=== PATIENT | female | born 1970 | race Caucasian/White ===

== ENCOUNTER 2022-01-17 13:31 | Inpatient (IN) | payer MEDICARE, MEDICAID ==
--- NOTE | 2022-01-17 15:25 | ED ---
General Adult HPI - General Chief complaint: Psychiatric Symptoms Stated complaint: Law Enforcement Petition Time Seen by Provider: 01/17/22 13:50 Source: patient, police, RN notes reviewed, old records reviewed Mode of arrival: ambulatory Limitations: altered mental status - History of Present Illness Initial comments: This a 51-year-old female who is brought into the emergency department because the police please a petition the patient to be evaluated. Patient was found in [employer] acting very oddly talking to people that weren't there and indicating she might want hurt some people. Patient did not mention hurting anyone to me however she was talking somewhat in the room that was not there other than myself. Patient was saying that she wanted to be with Tamir and I asked her where Tamir was and she indicated he was in a car but she didn't know where the car was. Patient was not making much sense and occasionally ask a question she looks away and starts talking and it appears she is talking to someone else was not in the room. Patient is a poor historian but she doesn't answer all the questions but she had no physical complaints when I asked her. - Related Data Home Medications Medication Instructions Recorded Confirmed Acetaminophen [Tylenol] 325 mg PO DIRECTED PRN 01/17/22 01/17/22 Albuterol Inhaler [Ventolin Hfa 2 puff INHALATION RT-Q6H PRN 01/17/22 01/17/22 Inhaler] Ammonium Lactate Cream [Lac-Hydrin 1 applic TOPICAL DAILY@0800 PRN 01/17/22 01/17/22 12% Cream] Aspirin EC [Ecotrin] 325 mg PO DIRECTED 01/17/22 01/17/22 Atorvastatin [Lipitor] 20 mg PO HS@209901/17/22 01/17/22 Cholecalciferol [Vitamin D3 (125 125 mcg PO DAILY@0800 01/17/22 01/17/22 Mcg = 5000 Iu)] Docusate [Colace] 100 mg PO DIRECTED PRN 01/17/22 01/17/22 Famotidine 20 mg PO BID@0800,209901/17/22 01/17/22 Fluticasone Propionate 44 Mcg 1 puff INHALATION RT-BID@0800,209901/17/22 01/17/22 [Flovent 44 Mcg Inhaler] Glucerna Shake 1 can PO DAILY@0800 01/17/22 01/17/22 Ibuprofen [Motrin Ib] 200 mg PO DIRECTED 01/17/22 01/17/22 Aristeo-Tin Liq 1 dose PO DIRECTED PRN 01/17/22 01/17/22 Lactulose 10 gm PO DAILY PRN 01/17/22 01/17/22 Loperamide HCl [Imodium A-D] 2 mg PO DIRECTED PRN 01/17/22 01/17/22 Loratadine 10 mg PO DAILY@0800 01/17/22 01/17/22 Magnesium Hydroxide [Milk of 1,200 mg PO DIRECTED PRN 01/17/22 01/17/22 Magnesia] Metamucil [place] 1 dose PO DIRECTED PRN 01/17/22 01/17/22 Montelukast Sodium [Singulair] 10 mg PO HS@209901/17/22 01/17/22 Mbjbydmy-Fgczmeylkd-Romv Oint 1 applic TOPICAL DIRECTED PRN 01/17/22 01/17/22 [Triple Antibiotic Ointment] Olopatadine HCl [Pataday] 1 drop BOTH EYES DAILY@0801/17/22 01/17/22 Paliperidone IM [Invega Sustenna] 234 mg IM QMONTHLY 01/17/22 01/17/22 Pseudoephedrine [Sudafed] 30 mg PO DIRECTED 01/17/22 01/17/22 Robafen Syp 100/5ml 1 dose PO DIRECTED PRN 01/17/22 01/17/22 Venlafaxine HCl [Effexor XR] 150 mg PO DAILY@0800 01/17/22 01/17/22 lisinopriL [Zestril] 20 mg PO DAILY@0800 01/17/22 01/17/22 metFORMIN HCL [Glucophage] 850 mg PO W/SUPPER@1700 01/17/22 01/17/22 risperiDONE [RisperDAL] 1 mg PO BID@0800,209901/17/22 01/17/22 traZODone HCL 200 mg PO HS@209901/17/22 01/17/22 Allergies Allergy/AdvReac Type Severity Reaction Status Date / Time codeine Allergy Unknown Verified 01/17/22 16:59 Review of Systems ROS Statement: Those systems with pertinent positive or pertinent negative responses have been documented in the HPI. ROS Other: All systems not noted in ROS Statement are negative. Past Medical History Past Medical History: Hypertension History of Any Multi-Drug Resistant Organisms: None Reported Past Surgical History: Unable to Obtain Past Psychological History: No Psychological Hx Reported Smoking Status: Current every day smoker Past Alcohol Use History: None Reported Past Drug Use History: None Reported General Exam - General Exam Comments Initial Comments: GENERAL: Patient is well-developed and well-nourished. Patient is nontoxic and well- hydrated and is in no acute distress. ENT: Neck is soft and supple. No significant lymphadenopathy is noted. Oropharynx is clear. Moist mucous membranes. Neck has full range of motion without eliciting any pain. EYES: The sclera were anicteric and conjunctiva were pink and moist. Extraocular movements were intact and pupils were equal round and reactive to light. Eyelids were unremarkable. PULMONARY: Unlabored respirations. Good breath sounds bilaterally. No audible rales rhonchi or wheezing was noted. CARDIOVASCULAR: There is a regular rate and rhythm without any murmurs gallops or rubs. ABDOMEN: Soft and nontender with normal bowel sounds. SKIN: Skin is clear with no lesions or rashes and otherwise unremarkable. NEUROLOGIC: Patient is alert and oriented difficult to assess since patient is not answering all my questions. Cranial nerves II through XII are grossly intact. Motor and sensory are also intact. Normal speech, volume and content. Symmetrical smile. MUSCULOSKELETAL: Normal extremities with adequate strength and full range of motion. LYMPHATICS: No significant lymphadenopathy is noted PSYCHIATRIC: Patient appears to be hallucinating and talking to people that aren't there. Patient also doesn't make any sense or conversation. Patient did indicate the police she did want hurt somebody though she has not repeated that to me. Limitations: altered mental status Course Vital Signs 01/17/22 01/17/22 13:51 16:00 Temperature 97.8 F Pulse Rate 104 H Respiratory 18 Rate Blood Pressure 141/101 O2 Sat by Pulse 98 Oximetry Procedures - Restraint - Face to Face Restraint Occurrence 1 Patient's Immediate Situation: Endangers self safety, Endangers others' safety, Other (see comment) (Elopement) Patient's Reaction to the Intervention: Uncooperative, Bizarre, Restless Patient's Medical & Behavioral Condition: Alert, Agitated, Bizarre behavior Face to Face Eval of Restraint Date: 01/17/22 Face to Face Eval of Restraint Time: 18:55 Medical Decision Making - Medical Decision Making EPS evaluated the patient and determined the patient needed to be admitted. I filled out a clinical certain the patient admitted. - Lab Data Lab Results 01/17/22 01/17/22 Range/Units 15:22 17:07 Urine Opiates Screen Not Detected (NotDetected) Ur Oxycodone Screen Not Detected (NotDetected) Urine Methadone Screen Not Detected (NotDetected) Ur Propoxyphene Screen Not Detected (NotDetected) Ur Barbiturates Screen Not Detected (NotDetected) U Tricyclic Antidepress Not Detected (NotDetected) Ur Phencyclidine Scrn Not Detected (NotDetected) Ur Amphetamines Screen Not Detected (NotDetected) U Methamphetamines Scrn Not Detected (NotDetected) U Benzodiazepines Scrn Not Detected (NotDetected) Urine Cocaine Screen Not Detected (NotDetected) U Marijuana (THC) Screen Not Detected (NotDetected) Coronavirus (PCR) Not Detected (Not Detectd) Disposition Clinical Impression: Acute psychosis Disposition: ADMITTED IP TO THIS HOSP Referrals: None,Stated [REFERRING] - 1-2 days Time of Disposition: 17:51
[2022-01-17 16:12] LABS: Amphetamine Screen,Urine Not Detected (NotDetected); Barbiturate Screen,Urine Not Detected (NotDetected); Benzodiazepines Screen,Urine Not Detected (NotDetected); Cocaine Screen,Urine Not Detected (NotDetected); Methadone Screen, Urine Not Detected (NotDetected); Opiate Screen,Urine Not Detected (NotDetected); Oxycodone Screen, Urine Not Detected (NotDetected); Phencyclidine Screen,Urine Not Detected (NotDetected); Tricyclic Antidepressant,Urine Not Detected (NotDetected); Urn Cannabinoid Scrn Not Detected (NotDetected)
[2022-01-17] MEDS ORDERED: ALBUTEROL INHALER 60 PUFF/8 GM INHALER (MHU) INHALATION PRN (20:07)
[2022-01-17] MEDS ORDERED: MAG HYDROX/AL HYDROX/SIMETH 30 ML CUP PO PRN (20:12)
[2022-01-17] MEDS ORDERED: ACETAMINOPHEN TAB 325 MG TAB PO PRN (20:12)
[2022-01-17] MEDS: LORazepam 2 MG/ML INJ IM PRN (20:59)
[2022-01-17] MEDS ORDERED: PALIPERIDONE IM 234 MG/1.5 ML SYG IM SCH (21:00)
[2022-01-17] MEDS: MONTELUKAST 10 MG TAB PO SCH (21:41)
[2022-01-17] MEDS: FAMOTIDINE 20 MG TAB PO SCH (21:41)
[2022-01-17] MEDS: ATORVASTATIN 20 MG TAB PO SCH (21:41)
[2022-01-17] MEDS: FLUTICASONE 44 MCG INHALATION SCH (21:41)
[2022-01-17] MEDS: traZODone HCL 100 MG TAB PO SCH (21:42)
[2022-01-17] MEDS: risperiDONE 1 MG TAB PO SCH (21:42)
[2022-01-18 07:18] LABS: Basophils # (A) 0.1 k/uL (0-0.2); Basophils % (A) 1 %; Eosinophils # (A) 0.1 k/uL (0-0.7); Eosinophils % (A) 2 %; HCT 44.2 % (34.0-46.0); HGB 14.7 gm/dL (11.4-16.0); Lymphocytes # (A) 2.6 k/uL (1.0-4.8); Lymphocytes % (A) 31 %; MCH 28.1 pg (25.0-35.0); MCHC 33.2 g/dL (31.0-37.0); MCV 84.6 fL (80.0-100.0); Mean Platelet Volume 8.9; Monocytes # (A) 0.5 k/uL (0-1.0); Monocytes % (A) 6 %; Neutrophils # (A) 4.9 k/uL (1.3-7.7); Neutrophils % (A) 58 %; Platelet Count 207 k/uL (150-450); RBC 5.23 m/uL (3.80-5.40); RDW 14.2 % (11.5-15.5); WBC 8.3 k/uL (3.8-10.6)
[2022-01-18 07:36] LABS: ALT 42 U/L (4-34); AST 44 U/L (14-36); African American GFR (CKD) >90 (>60 ml/min/1.73 sqM); Albumin 4.3 g/dL (3.5-5.0); Alkaline Phosphatase 72 U/L (38-126); Anion Gap 5 mmol/L; Blood Urea Nitrogen 7 mg/dL (7-17); Calcium 9.4 mg/dL (8.4-10.2); Carbon Dioxide 29 mmol/L (22-30); Chloride 104 mmol/L (98-107); Glucose 98 mg/dL (74-99); Non-African American GFR(CKD) >90 (>60 ml/min/1.73 sqM); Sodium 138 mmol/L (137-145); Total Bilirubin 0.6 mg/dL (0.2-1.3); Total Protein 6.7 g/dL (6.3-8.2)
[2022-01-18] MEDS: lisinopriL 10 MG TAB PO SCH (08:32)
[2022-01-18] MEDS: VENLAFAXINE HCL ER 150 MG CAP PO SCH (08:32)
[2022-01-18] MEDS: LORATADINE 10 MG TAB PO SCH (08:32)
[2022-01-18] MEDS: CHOLECALCIFEROL 125 MCG (5000 IU) TABLET PO SCH (08:32)
[2022-01-18] MEDS: FAMOTIDINE 20 MG TAB PO SCH ×2 (08:32→20:15)
[2022-01-18] MEDS: risperiDONE 1 MG TAB PO SCH ×2 (08:33→20:16)
[2022-01-18] MEDS: NICOTINE 21MG/24HR PATCH TRANSDERM SCH (08:36)
[2022-01-18] MEDS: FLUTICASONE 44 MCG INHALATION SCH ×2 (08:36→20:16)
[2022-01-18 11:06] LABS: Chol/HDL Ratio 3.13 Ratio
--- NOTE | 2022-01-18 13:42 | P.HP ---
Psychiatric H&P - . H&P Date: 01/18/22 History & Physical: Allergies Allergy/AdvReac Type Severity Reaction Status Date / Time codeine Allergy Unknown Verified 01/17/22 21:43 Vital Signs Temp 97.6 F 01/17/22 21:27 Pulse 101 H 01/18/22 04:04 Resp 20 01/17/22 21:27 BP 127/59 01/18/22 04:04 Pulse Ox 98 01/17/22 13:51 FiO2 Intake & Output 01/17/22 01/18/22 01/18/22 18:59 06:59 18:59 Weight 108.862 kg 88.5 kg Laboratory Last Values WBC 8.3 k/uL (3.8-10.6) 01/18/22 06:51 RBC 5.23 m/uL (3.80-5.40) 01/18/22 06:51 Hgb 14.7 gm/dL (11.4-16.0) 01/18/22 06:51 Hct 44.2 % (34.0-46.0) 01/18/22 06:51 MCV 84.6 fL (80.0-100.0) 01/18/22 06:51 MCH 28.1 pg (25.0-35.0) 01/18/22 06:51 MCHC 33.2 g/dL (31.0-37.0) 01/18/22 06:51 RDW 14.2 % (11.5-15.5) 01/18/22 06:51 Plt Count 207 k/uL (150-450) 01/18/22 06:51 MPV 8.9 01/18/22 06:51 Neutrophils % 58 % 01/18/22 06:51 Lymphocytes % 31 % 01/18/22 06:51 Monocytes % 6 % 01/18/22 06:51 Eosinophils % 2 % 01/18/22 06:51 Basophils % 1 % 01/18/22 06:51 Neutrophils # 4.9 k/uL (1.3-7.7) 01/18/22 06:51 Lymphocytes # 2.6 k/uL (1.0-4.8) 01/18/22 06:51 Monocytes # 0.5 k/uL (0-1.0) 01/18/22 06:51 Eosinophils # 0.1 k/uL (0-0.7) 01/18/22 06:51 Basophils # 0.1 k/uL (0-0.2) 01/18/22 06:51 Sodium 138 mmol/L (137-145) 01/18/22 06:51 Potassium 4.0 mmol/L (3.5-5.1) 01/18/22 06:51 Chloride 104 mmol/L (98-107) 01/18/22 06:51 Carbon Dioxide 29 mmol/L (22-30) 01/18/22 06:51 Anion Gap 5 mmol/L 01/18/22 06:51 BUN 7 mg/dL (7-17) 01/18/22 06:51 Creatinine 0.63 mg/dL (0.52-1.04) 01/18/22 06:51 Est GFR (CKD-EPI)AfAm >90 (>60 ml/min/1.73 sqM) 01/18/22 06:51 Est GFR (CKD-EPI)NonAf >90 (>60 ml/min/1.73 sqM) 01/18/22 06:51 Glucose 98 mg/dL (74-99) 01/18/22 06:[address] Glu mg/dL 123 01/18/22 06:51 Hemoglobin A1c 5.9 % (0.0-6.0) 01/18/22 06:51 Calcium 9.4 mg/dL (8.4-10.2) 01/18/22 06:51 Total Bilirubin 0.6 mg/dL (0.2-1.3) 01/18/22 06:51 AST 44 U/L (14-36) H 01/18/22 06:51 ALT 42 U/L (4-34) H 01/18/22 06:51 Alkaline Phosphatase 72 U/L (38-126) 01/18/22 06:51 Total Protein 6.7 g/dL (6.3-8.2) 01/18/22 06:51 Albumin 4.3 g/dL (3.5-5.0) 01/18/22 06:51 Triglycerides 162.00 mg/dL (0.00-149.00) H 01/18/22 06:51 Cholesterol 121.00 mg/dL (0.00-200.00) 01/18/22 06:51 LDL Cholesterol, Calc 50.0 mg/dL (0.0-131.0) 01/18/22 06:51 VLDL Cholesterol, Calc 32.40 mg/dL (5.00-40.00) 01/18/22 06:51 HDL Cholesterol 38.60 mg/dL (40.00-60.00) L 01/18/22 06:51 Cholesterol/HDL Ratio 3.13 Ratio 01/18/22 06:51 TSH 1.820 mIU/L (0.465-4.680) 01/18/22 06:51 Urine Opiates Screen Not Detected (NotDetected) 01/17/22 15:22 Ur Oxycodone Screen Not Detected (NotDetected) 01/17/22 15:22 Urine Methadone Screen Not Detected (NotDetected) 01/17/22 15:22 Ur Propoxyphene Screen Not Detected (NotDetected) 01/17/22 15:22 Ur Barbiturates Screen Not Detected (NotDetected) 01/17/22 15:22 U Tricyclic Antidepress Not Detected (NotDetected) 01/17/22 15:22 Ur Phencyclidine Scrn Not Detected (NotDetected) 01/17/22 15:22 Ur Amphetamines Screen Not Detected (NotDetected) 01/17/22 15:22 U Methamphetamines Scrn Not Detected (NotDetected) 01/17/22 15:22 U Benzodiazepines Scrn Not Detected (NotDetected) 01/17/22 15:22 Urine Cocaine Screen Not Detected (NotDetected) 01/17/22 15:22 U Marijuana (THC) Screen Not Detected (NotDetected) 01/17/22 15:22 Coronavirus (PCR) Not Detected (Not Detectd) 01/17/22 17:07 01/18/22 13:41 IDENTIFYING DATA: Patient is a 51-year-old female with significant his tory of schizophrenia presented to the hospital for acute psychosis. HPI: Patient presented to the hospital on 01/17/2022, brought into the hospital by police after eloping from her [facility] intermediate. Reportedly, the patient has been nonadherent with her medications including her regularly scheduled dose of Invega Sustenna. The patient last received the injectable Invega Sustenna on 12/13/2021 and was scheduled for her next injection of 234 mg IM on 01/10/2022. The patient has been petitioned and certified and subsequently admitted to the psychiatric unit. The patient was last seen for a medication review on 12/16/2021. Upon evaluation on the psychiatric unit, the patient is grossly delusional, disorganized, and responding to internal stimuli. She endorses auditory and visual hallucinations. She expresses bizarre delusions of surveillance and paranoia. She reports that "they are after me and my baby." She also reports concern that some government entity is trying to put thoughts into her head. She is unable to provide any clear psychiatric history otherwise at this time. She is unable to recall what medication she has been taking and when she left medications. The patient is currently denying any active suicidal ideation however does have significant decided attempts by cutting. She is currently denying any homicidal ideation, intention, and/or plan. The patient firmly believes that she does not have schizophrenia. She reports that she does not want to take any medications. PAST PSYCHIATRIC HISTORY: Patient has previous diagnoses of schizophrenia. The patient's home medication regimen includes Invega Sustenna 234 mg IM, risperidone 1 mg twice a day, trazodone 200 mg at bedtime, Effexor. Patient has had numerous psychiatric hospitalizations. The patient is currently open with [facility]. The patient has had a prior attempt at suicide by cutting. PMH: Past Medical History: Hypertension History of Any Multi-Drug Resistant Organisms: None Reported Past Surgical History: Unable to Obtain Past Psychological History: No Psychological Hx Reported Smoking Status: Current every day smoker Past Alcohol Use History: None Reported Past Drug Use History: None Reported ALLERGIES: Codeine CHEMICAL DEPENDENCY HISTORY: The patient does report tobacco use. She reports that she smokes about a pack per day. She does report occasional alcohol use. She does have significant history of marijuana use. She denies any illicit drug use. FAMILY PSYCHIATRIC/SUBSTANCE USE HISTORY: Unable to assess. SOCIAL HISTORY: Patient currently resides in a intermediate. MENTAL STATUS EXAM: General Appearance: Patient appears to be stated age is alert, directable, and attempts to cooperate. Patient appears to have poor hygiene and grooming. Behavior: Patient is seated without any agitated behavior. Elevated psychomotor activity. Speech: Patient's speech is fluent and nonpressured. Monotone and nonspontaneous. Mood/Affect: Patient reports their mood is "I don't know." Affect is flat. Suicidality/Homicidality: Patient denies having any homicidal ideation intent or plan. Denies any suicidal ideations intent or plan Perceptions: Patient endorses both auditory and visual hallucinations. Though content/process: Patient endorses bizarre delusional thought content, appears to be grossly disorganized, and appears to be responding to internal stimuli. Memory and concentration: AOX3, grossly intact for the purposes of this session. Concentration appears to be poor. Judgment and insight: poor STRENGTHS/WEAKNESSES: Unable to identify patient strengths at this time. W eakness that the patient has severe mental illness and is nonadherent with treatment. INTELLECT: Below average to average IMPRESSIONS: Schizoaffective disorder, bipolar type Posttraumatic stress disorder Cannabis use disorder Tobacco use disorder PLAN: -Patient is admitted under involuntary status to MHU for stabilization of psychiatric symptoms and safety. A second certification was completed and along with petition will be filed for court. -Medications : We will increase the patient's Risperdal to 2 mg by mouth twice a day for management of acute psychosis We will continue Effexor 150 mg by mouth daily for depression/anxiety Continue trazodone 200 mg by mouth at bedtime for insomnia We will restart Invega Sustenna pending patient's response with Risperdal. -Ativan and Haldol PRN for agitation/aggression -Patient was counselled on substance abuse and desired to cut back on use -Patient was informed of the risks, benefits and side effects of the medication and patient verbally consented to taking the medications. Patient signed med consent form and was placed in chart. -Internal Medicine consult to perform medical evaluation and physical. -NRT - nicotine patch - on board for discharge planning. Encourage patient to participate in groups to work on coping skills. 01/18/22 13:41
[2022-01-18] MEDS: metFORMIN 850 MG TAB PO SCH (17:17)
[2022-01-18] MEDS: traZODone HCL 100 MG TAB PO SCH (20:15)
[2022-01-18] MEDS: ATORVASTATIN 20 MG TAB PO SCH (20:15)
[2022-01-18] MEDS: MONTELUKAST 10 MG TAB PO SCH (20:16)
--- NOTE | 2022-01-19 02:36 | P.CONS ---
History of Present Illness - Reason for Consult Consult date: 01/19/22 - History of Present Illness The patient is a 52-year-old female with a PMH of type II DM, hypertension, hyperlipidemia, COPD, who was brought to the emergency room under police custody after she was found to be acting strangely at a [employer]. The patient was reportedly acting bizarre with bystanders worried that she may hurt someone. The patient was admitted to the mental health unit where she was seen and evaluated with a mental health unit RN at the bedside. The patient denied any physical complaints at the time of interview. She denied including chest discomfort, shortness of breath, fever, chills, cough, nausea, vomiting, abdominal, diarrhea. She does report a history of cervical cancer for which she underwent treatment as an outpatient. She wishes to follow up with her outpatient ACADEMIC SERVICES COORDINATOR. She reports smoking half pack of cigarettes daily and using recreational marijuana. Laboratory evaluation was reviewed. Review of systems: Pertinent positives and negatives as discussed in HPI, a complete review of systems was performed and all other systems are negative. Physical examination: General: non toxic, no distress, appears at stated age, obese Derm: no unusual rashes/lesions no unusual ecchymoses, warm, dry Head: atraumatic, normocephalic, symmetric Eyes: EOMI, no lid lag, anicteric sclera, pupils equal round reactive to light ENT: Nose and ears atraumatic, no thrush, no pharyngeal erythema Neck: No thyromegaly, no cervical lymphadenopathy, trachea midline, supple Mouth: no lip lesion, mucus membranes moist Cardiovascular: S1S2 reg, no murmur, positive posterior tibial pulse bilateral, no edema, capillary refill less than 2 seconds Lungs: CTA bilateral, no rhonchi, no rales , no accessory muscle use Abdominal: soft, nontender to palpation, no guarding, no appreciable organomegaly, normal bowel sounds Ext: no gross muscle atrophy, muscle strength 5 out of 5 in all 4 extremities grossly, no contractures, Neuro: CN II-XI grossly intact, light touch intact all 4 extremities, finger to nose within normal limits, Psych: Alert, oriented, bizarre affect Assessment/plan Tobacco and marijuana abuse -Advised on importance of cessation Chronic conditions: Type II DM, hypertension, hyperlipidemia, COPD -Continue with home meds Psychosis -As per psychiatry Thank you for allowing us to participate in the care of this patient. We will follow peripherally. Do not hesitate to contact us with questions. Someone can be reached from the [facility] hospitalist group at all hours of the day at [phone]. Past Medical History Past Medical History: Hypertension History of Any Multi-Drug Resistant Organisms: None Reported Past Surgical History: Unable to Obtain Past Anesthesia/Blood Transfusion Reactions: No Reported Reaction Smoking Status: Current every day smoker - Past Family History Mother Family Medical History: Hyperlipidemia Medications and Allergies Home Medications Medication Instructions Recorded Confirmed Type Acetaminophen [Tylenol] 325 mg PO DIRECTED PRN 01/17/22 01/17/22 History Albuterol Inhaler [Ventolin Hfa 2 puff INHALATION RT-Q6H PRN 01/17/22 01/17/22 History Inhaler] Ammonium Lactate Cream [Lac-Hydrin 1 applic TOPICAL DAILY@0800 PRN 01/17/22 01/17/22 History 12% Cream] Aspirin EC [Ecotrin] 325 mg PO DIRECTED 01/17/22 01/17/22 History Atorvastatin [Lipitor] 20 mg PO HS@209901/17/22 01/17/22 History Cholecalciferol [Vitamin D3 (125 125 mcg PO DAILY@0800 01/17/22 01/17/22 History Mcg = 5000 Iu)] Docusate [Colace] 100 mg PO DIRECTED PRN 01/17/22 01/17/22 History Famotidine 20 mg PO BID@0800,209901/17/22 01/17/22 History Fluticasone Propionate 44 Mcg 1 puff INHALATION RT-BID@0800,209901/17/22 01/17/22 History [Flovent 44 Mcg Inhaler] Glucerna Shake 1 can PO DAILY@0800 01/17/22 01/17/22 History Ibuprofen [Motrin Ib] 200 mg PO DIRECTED 01/17/22 01/17/22 History Aristeo-Tin Liq 1 dose PO DIRECTED PRN 01/17/22 01/17/22 History Lactulose 10 gm PO DAILY PRN 01/17/22 01/17/22 History Loperamide HCl [Imodium A-D] 2 mg PO DIRECTED PRN 01/17/22 01/17/22 History Loratadine 10 mg PO DAILY@0800 01/17/22 01/17/22 History Magnesium Hydroxide [Milk of 1,200 mg PO DIRECTED PRN 01/17/22 01/17/22 History Magnesia] Metamucil [place] 1 dose PO DIRECTED PRN 01/17/22 01/17/22 History Montelukast Sodium [Singulair] 10 mg PO HS@2100 01/17/22 01/17/22 History Dkegozfm-Gcobojalso-Sibf Oint 1 applic TOPICAL DIRECTED PRN 01/17/22 01/17/22 History [Triple Antibiotic Ointment] Olopatadine HCl [Pataday] 1 drop BOTH EYES DAILY@0800 01/17/22 01/17/22 History Paliperidone IM [Invega Sustenna] 234 mg IM QMONTHLY 01/17/22 01/17/22 History Pseudoephedrine [Sudafed] 30 mg PO DIRECTED 01/17/22 01/17/22 History Robafen Syp 100/5ml 1 dose PO DIRECTED PRN 01/17/22 01/17/22 History Venlafaxine HCl [Effexor XR] 150 mg PO DAILY@0800 01/17/22 01/17/22 History lisinopriL [Zestril] 20 mg PO DAILY@0800 01/17/22 01/17/22 History metFORMIN HCL [Glucophage] 850 mg PO W/SUPPER@1700 01/17/22 01/17/22 History risperiDONE [RisperDAL] 1 mg PO BID@0800,2100 01/17/22 01/17/22 History traZODone HCL 200 mg PO HS@209901/17/22 01/17/22 History Allergies Allergy/AdvReac Type Severity Reaction Status Date / Time codeine Allergy Unknown Verified 01/17/22 21:43 Physical Exam Vitals: Vital Signs Pulse BP 01/18/22 04:04 101 H 127/59 Results CBC & Chem 7: 01/18/22 06:51 01/18/22 06:51 Labs: Abnormal Lab Results - Last 24 Hours (Table) 01/18/22 Range/Units 06:51 AST 44 H (14-36) U/L ALT 42 H (4-34) U/L Triglycerides 162.00 H (0.00-149.00) mg/dL HDL Cholesterol 38.60 L (40.00-60.00) mg/dL
[2022-01-19] MEDS: CHOLECALCIFEROL 125 MCG (5000 IU) TABLET PO SCH (08:00)
[2022-01-19] MEDS: LORATADINE 10 MG TAB PO SCH (08:00)
[2022-01-19] MEDS: VENLAFAXINE HCL ER 150 MG CAP PO SCH (08:01)
[2022-01-19] MEDS: FLUTICASONE 44 MCG INHALATION SCH ×2 (08:01→20:37)
[2022-01-19] MEDS: FAMOTIDINE 20 MG TAB PO SCH ×2 (08:03→20:38)
[2022-01-19] MEDS: lisinopriL 10 MG TAB PO SCH (08:03)
[2022-01-19] MEDS: risperiDONE 1 MG TAB PO SCH ×2 (08:03→20:38)
[2022-01-19] MEDS: NICOTINE 21MG/24HR PATCH TRANSDERM SCH (08:04)
--- NOTE | 2022-01-19 13:40 | P.PN ---
Progress Note - Text Progress Note Date: 01/19/22 Interval History: Patient was seen wandering the hallways and was directable and agreeable to speak with creative services writer in her room. Currently, the patient is not reporting any suicidal or homicidal ideation, intention, and/or plan. She continues to be delusional and paranoid. She has been refusing any medications. She reports no issues otherwise with her sleep or her appetite. The patient appears to respond to internal stimuli. Admits to auditory hallucinations are denies any visual hallucinations. Mental Status Exam: General Appearance: Patient appears to be stated age is alert, directable, and intermittently cooperative. Behavior: Patient is calmly seated without any agitated behavior. Intermittent eye contact Speech: Patient's speech is fluent and nonpressured. Mood/Affect: Mood is "okay." Affect is flat. Suicidality/Homicidality: Patient denies having any suicidal or homicidal ideation intent or plan. Perceptions: Patient denies any visual hallucinations but patient endorses auditory hallucinations Though content/process: Patient display significant paranoid and bizarre delusional thought content. She appears to respond to internal stimuli. Memory and concentration: AOX3, grossly intact for the purposes of this session Judgment and insight: Very poor Vital Signs Temp 97.4 F L 01/19/22 05:36 Pulse 80 01/19/22 05:36 Resp 18 01/19/22 05:36 BP 99/55 01/19/22 05:36 Pulse Ox 98 01/17/22 13:51 FiO2 Assessment Schizoaffective disorder, bipolar type Posttraumatic stress disorder Cannabis use disorder Tobacco use disorder Plan: -Patient continues to meet criteria for inpatient psychiatric admission for symptom stabilization and safety. The patient has been petitioned and certified. -Medications: We will continue Risperdal 2 mg by mouth twice a day. Patient is currently refusing this medication Discontinue Effexor as Effexor may have contributed to her aquatic symptoms as per discussion with [facility] Continue trazodone 200 mg by mouth at bedtime for insomnia -When necessary Ativan and Haldol for agitation/aggression. -NRT - nicotine patch - on board for discharge planning. Encouraged the patient to participate in milieu.
[2022-01-19] MEDS: metFORMIN 850 MG TAB PO SCH (17:53)
[2022-01-19] MEDS: MONTELUKAST 10 MG TAB PO SCH (20:38)
[2022-01-19] MEDS: ATORVASTATIN 20 MG TAB PO SCH (20:38)
[2022-01-19] MEDS: traZODone HCL 100 MG TAB PO SCH (20:39)
[2022-01-20] MEDS: lisinopriL 10 MG TAB PO SCH (08:27)
[2022-01-20] MEDS: FAMOTIDINE 20 MG TAB PO SCH ×2 (08:27→20:23)
[2022-01-20] MEDS: FLUTICASONE 44 MCG INHALATION SCH ×2 (08:27→20:24)
[2022-01-20] MEDS: CHOLECALCIFEROL 125 MCG (5000 IU) TABLET PO SCH (08:27)
[2022-01-20] MEDS: LORATADINE 10 MG TAB PO SCH (08:28)
[2022-01-20] MEDS: NICOTINE 21MG/24HR PATCH TRANSDERM SCH (08:28)
[2022-01-20] MEDS: risperiDONE 1 MG TAB PO SCH ×3 (08:28→20:45)
[2022-01-20 09:10] LABS: Amorphous Sediment,Urine Rare /hpf; Appearance,Urine Cloudy (Clear); Bacteria,Urine Moderate /hpf; Bilirubin,Urine 1+ (Negative); Blood,Urine Moderate (Negative); Color,Urine Yellow; Glucose,Urine (UA) Trace (Negative); Ketones,Urine Negative (Negative); Leukocyte Esterase,Urine Large (Negative); Mucus,Urine Many /hpf; Nitrite,Urine Negative (Negative); PH, Urine 5.5 (5.0-8.0); Protein,Urine 1+ (Negative); RBC,Urine 16 /hpf (0-5); Specific Gravity,Urine 1.025 (1.001-1.035); Squamous Epithelial Cell,Urine 32 /hpf (0-4); WBC,Urine 15 /hpf (0-5)
--- NOTE | 2022-01-20 11:49 | P.PN ---
Progress Note - Text Progress Note Date: 01/20/22 Interval History: Patient was seen wandering the hallways and was directable and agreeable to speak with senior writer in her room. The patient refused to be intermittently adherent with her medications. She reports that she does not need any medications to this provider. She is currently denying any overt auditory or visual hallucinations. She denies any suicidal or homicidal ideation, intention, and/or plan. The patient expresses that she does not believe that she has any psychiatric illness. She does appear to respond to internal stimuli while speaking with this provider and stares blankly before answering any questions. Mental Status Exam: General Appearance: Patient appears to be stated age is alert, directable, and intermittently cooperative. Behavior: Patient is calmly seated without any agitated behavior. Blank stares. Speech: Patient's speech is fluent and nonpressured. Mood/Affect: Mood is "okay." Affect is flat. Suicidality/Homicidality: Patient denies having any suicidal or homicidal ideation intent or plan. Perceptions: Patient denies any visual hallucinations but patient endorses auditory hallucinations Though content/process: Patient display significant paranoid and bizarre delusional thought content. She appears to respond to internal stimuli. Memory and concentration: AOX3, grossly intact for the purposes of this session Judgment and insight: Very poor Vital Signs Temp 97.8 F 01/20/22 06:43 Pulse 93 01/20/22 08:30 Resp 16 01/20/22 06:43 BP 110/65 01/20/22 08:30 Pulse Ox 98 01/20/22 06:43 FiO2 Laboratory Results - Last 24 Hours 01/20/22 08:00 Urine Color Yellow Urine Appearance Cloudy H Urine pH 5.5 Ur Specific [place] 1.025 Urine Protein 1+ H Urine Glucose (UA) Trace H Urine Ketones Negative Urine Blood Moderate H Urine Nitrite Negative Urine Bilirubin 1+ H Urine Urobilinogen 3.0 Ur Leukocyte Esterase Large H Urine RBC 16 H Urine WBC 15 H Ur Squamous Epith Cells 32 H Amorphous Sediment Rare H Urine Bacteria Moderate H Urine Mucus Many H Assessment Schizoaffective disorder, bipolar type Posttraumatic stress disorder Cannabis use disorder Tobacco use disorder Plan: -Patient continues to meet criteria for inpatient psychiatric admission for symptom stabilization and safety. The patient has been petitioned and certified. Court scheduled for 02/02/2022. -Medications: We will continue Risperdal 2 mg by mouth twice a day. Patient is currently refusing this medication Discontinue Effexor as Effexor may have contributed to her aquatic symptoms as per discussion with [facility] Continue trazodone 200 mg by mouth at bedtime for insomnia -When necessary Ativan and Haldol for agitation/aggression. -NRT - nicotine patch -SW on board for discharge planning. Encouraged the patient to participate in milieu.
[2022-01-20] MEDS: metFORMIN 850 MG TAB PO SCH (17:15)
[2022-01-20] MEDS: traZODone HCL 100 MG TAB PO SCH (20:24)
[2022-01-20] MEDS: ATORVASTATIN 20 MG TAB PO SCH (20:24)
[2022-01-20] MEDS: MONTELUKAST 10 MG TAB PO SCH (20:24)
[2022-01-21] MEDS: LORazepam 2 MG/ML INJ IM PRN ×2 (07:11→14:47)
[2022-01-21] MEDS: risperiDONE 1 MG TAB PO SCH ×2 (09:11→21:31)
[2022-01-21] MEDS: lisinopriL 10 MG TAB PO SCH (09:12)
[2022-01-21] MEDS: FAMOTIDINE 20 MG TAB PO SCH ×2 (09:12→21:31)
[2022-01-21] MEDS: CHOLECALCIFEROL 125 MCG (5000 IU) TABLET PO SCH (09:12)
[2022-01-21] MEDS: LORATADINE 10 MG TAB PO SCH (09:12)
[2022-01-21] MEDS: FLUTICASONE 44 MCG INHALATION SCH ×2 (09:13→21:31)
--- NOTE | 2022-01-21 15:16 | P.PN ---
Progress Note - Text Progress Note Date: 01/21/22 Interval History: Patient was seen wandering the hallways and was directable and agreeable to speak with newswriter in her room. Currently, the patient denied any suicidal or homicidal ideation, intention, and/or plan. She is not reporting any auditory or visual hallucinations. She is denying any paranoia or other delusions. However during the psychiatric evaluation, the patient appeared to respond to internal stimuli and began having a conversation with somebody that was not present in the room. She expressed that she was "trying my best grandma." She later also stated that she was speaking with her godmother. She continues to be intermittently adherent with medications. Mental Status Exam: General Appearance: Patient appears to be stated age is alert, directable, and intermittently cooperative. Behavior: Patient is calmly seated without any agitated behavior. Blank stares. Speech: Patient's speech is fluent and nonpressured. Mood/Affect: Mood is "I feel like I let everyone down." Affect is flat. Dysphoric. Suicidality/Homicidality: Patient denies having any suicidal or homicidal ideation intent or plan. Perceptions: Patient denies any visual hallucinations but presents responding to auditory hallucinations. Though content/process: Patient appears to respond to internal stimuli. Memory and concentration: AOX3, grossly intact for the purposes of this session Judgment and insight: Very poor Vital Signs Temp 97.8 F 01/20/22 06:43 Pulse 93 01/20/22 08:30 Resp 16 01/20/22 06:43 BP 110/65 01/20/22 08:30 Pulse Ox 98 01/20/22 06:43 FiO2 Assessment Schizoaffective disorder, bipolar type Posttraumatic stress disorder Cannabis use disorder Tobacco use disorder Plan: -Patient continues to meet criteria for inpatient psychiatric admission for symptom stabilization and safety. The patient has been petitioned and certified. Court scheduled for 02/02/2022. -Medications: We will continue Risperdal 2 mg by mouth twice a day. Patient is intermittently adherent with the medication. Continue trazodone 200 mg by mouth at bedtime for insomnia -When necessary Ativan and Haldol for agitation/aggression. -NRT - nicotine patch -SW on board for discharge planning. Encouraged the patient to participate in milieu.
[2022-01-21] MEDS: metFORMIN 850 MG TAB PO SCH (16:58)
[2022-01-21] MEDS: traZODone HCL 100 MG TAB PO SCH ×2 (21:30→21:35)
[2022-01-21] MEDS: MONTELUKAST 10 MG TAB PO SCH (21:30)
[2022-01-21] MEDS: ATORVASTATIN 20 MG TAB PO SCH (21:30)
[2022-01-22] MEDS: lisinopriL 10 MG TAB PO SCH (08:51)
[2022-01-22] MEDS: FAMOTIDINE 20 MG TAB PO SCH ×2 (08:51→21:31)
[2022-01-22] MEDS: LORATADINE 10 MG TAB PO SCH (08:51)
[2022-01-22] MEDS: risperiDONE 1 MG TAB PO SCH ×2 (08:51→21:31)
[2022-01-22] MEDS: CHOLECALCIFEROL 125 MCG (5000 IU) TABLET PO SCH (08:52)
[2022-01-22] MEDS: FLUTICASONE 44 MCG INHALATION SCH ×2 (08:54→21:31)
--- NOTE | 2022-01-22 15:07 | P.PN ---
Progress Note - Text Progress Note Date: 01/22/22 Subjective: Patient was seen today as a cross coverage for Dr. Knight. The patient was evaluated, chart reviewed, case discussed with the treatment team. Patient reports fair sleep last night, and appetite was reported as " good". Patient has not been going to groups and other unit activities. The patient is compliant with her medications and denies any adverse reactions. Patient was very guarded and superficial in her answers. She presented with bizarre behavior and speech. Patient was talking to nonexisting people while she was sitting. She only asking for discharge, and he requested to leave the hospital today. No behavioral problems reported today. Patient denies suicidal or homicidal ideation. She denies auditory or visual hallucinations. Objective: Vitals has been reviewed. Mental status examination; General Appearance: Patient appears to be stated age is alert, and intermittently cooperative. Behavior: Patient is calmly seated without any agitated behavior. Blank stares. Speech: Patient's speech is fluent and non pressured. Mood/Affect: Mood is "I am fine" Affect is flat. Suicidality/Homicidality: Patient denies having any suicidal or homicidal ideation intent or plan. Perceptions: Patient denies any visual hallucinations but presents responding to auditory hallucinations. Though content/process: Patient appears to respond to internal stimuli.Talking to non-existing people Memory and concentration: AOX3, grossly intact for the purposes of this session Judgment and insight: Very poor Assessment: Schizoaffective disorder, bipolar type Posttraumatic stress disorder Cannabis use disorder Tobacco use disorder Plan: Continue inpatient level of care due to patient needs further monitoring and stabilization. She is still presented with psychotic symptoms. Precautions: Continue 15 minutes check for safety. Consider medical consultation if any acute medical issues arise. Provide the patient individual, group therapy, substance use disorder counseling to give better insight and learn coping skills. Medications: Risperdal 2 mg by mouth twice a day for psychotic symptoms. Patient is intermittently adherent with the medication. According to the chart, the patient received Invega SMITH 234 mg on 01/17/22 Continue trazodone 200 mg by mouth at bedtime for insomnia When necessary Ativan and Haldol for agitation/aggression. NRT - nicotine patch Continue non-psychiatric medications for medical conditions as recommended by the medical team. Discharge patient to OUTPATIENT services upon a stabilization
[2022-01-22] MEDS: metFORMIN 850 MG TAB PO SCH (17:09)
[2022-01-22] MEDS: traZODone HCL 100 MG TAB PO SCH (21:30)
[2022-01-22] MEDS: ATORVASTATIN 20 MG TAB PO SCH (21:31)
[2022-01-22] MEDS: MONTELUKAST 10 MG TAB PO SCH (21:31)
[2022-01-23] MEDS: risperiDONE 1 MG TAB PO SCH ×2 (08:24→20:54)
[2022-01-23] MEDS: lisinopriL 10 MG TAB PO SCH (08:24)
[2022-01-23] MEDS: LORATADINE 10 MG TAB PO SCH (08:24)
[2022-01-23] MEDS: FAMOTIDINE 20 MG TAB PO SCH ×2 (08:24→20:56)
[2022-01-23] MEDS: CHOLECALCIFEROL 125 MCG (5000 IU) TABLET PO SCH (08:24)
[2022-01-23] MEDS: FLUTICASONE 44 MCG INHALATION SCH ×2 (08:33→20:56)
--- NOTE | 2022-01-23 15:59 | P.PN ---
Progress Note - Text Progress Note Date: 01/23/22 Subjective: Patient was seen today as a cross coverage for Dr. Knight. The patient was evaluated, chart reviewed, case discussed with the treatment team. Patient presented with disorganized thoughts and speech. She couldn't answer question and continued to talk irrelevant to the questions. When asking about sleep, she responded" I have been raising my kids". Patient was not responding to redirection. She was talking about feeling exploding that she would scream and yell. She was able to answer few questions that she denied f having hallucinations, but she seems internally preoccupied. The patient has been compliant with her medications. No report of his sleep or appetite problem. The patient apparently responding to external stimuli and probably to internal stimuli as well. No behavioral problems reported today. Objective: Vitals has been reviewed. Mental status examination; General Appearance: Patient appears to be stated age is alert, and intermittently cooperative. Behavior: Patient is calmly seated without any agitated behavior. Blank stares. Speech: Patient's speech is fluent and non pressured. Mood/Affect: Mood is "I don't know" Affect is flat. Suicidal /Homicidal ideation: Patient denies having any suicidal or homicidal ideation intent or plan. Perceptions: Patient denies any visual hallucinations but presents responding to auditory hallucinations. Though content/process: Patient appears to respond to internal stimuli.Talking to non-existing people Memory and concentration: AOX3, grossly intact for the purposes of this session Judgment and insight: Very poor Assessment: Schizoaffective disorder, bipolar type Posttraumatic stress disorder Cannabis use disorder Tobacco use disorder Plan: Continue inpatient level of care due to patient needs further monitoring and stabilization. She is still presented with psychotic symptoms. Precautions: Continue 15 minutes check for safety. Consider medical consultation if any acute medical issues arise. Provide the patient individual, group therapy, substance use disorder counseling to give better insight and learn coping skills. Medications: Risperdal 2 mg by mouth twice a day for psychotic symptoms. Patient is intermittently adherent with the medication. According to the chart, the patient received Invega SMITH 234 mg on 01/17/22 Continue trazodone 200 mg by mouth at bedtime for insomnia When necessary Ativan and Haldol for agitation/aggression. Continue non-psychiatric medications for medical conditions as recommended by the medical team. Discharge patient to OUTPATIENT services upon a stabilization
[2022-01-23] MEDS: metFORMIN 850 MG TAB PO SCH (16:39)
[2022-01-23] MEDS: MONTELUKAST 10 MG TAB PO SCH (20:53)
[2022-01-23] MEDS: ATORVASTATIN 20 MG TAB PO SCH (20:54)
[2022-01-23] MEDS: traZODone HCL 100 MG TAB PO SCH (20:54)
[2022-01-23] MEDS: LORazepam 1 MG TAB PO PRN (23:29)
[2022-01-24] MEDS: lisinopriL 10 MG TAB PO SCH (09:26)
[2022-01-24] MEDS: LORATADINE 10 MG TAB PO SCH (09:26)
[2022-01-24] MEDS: FAMOTIDINE 20 MG TAB PO SCH (09:26)
[2022-01-24] MEDS: risperiDONE 1 MG TAB PO SCH ×2 (09:26→22:30)
[2022-01-24] MEDS: FLUTICASONE 44 MCG INHALATION SCH ×2 (09:27→22:31)
--- NOTE | 2022-01-24 11:47 | P.PN ---
Progress Note - Text Progress Note Date: 01/24/22 Interval History: Patient was seen wandering the hallways and was directable and agreeable to speak with greeting card writer in her room. Currently, the patient expresses that she continues to experience auditory hallucinations. She reports that she has been speaking to "all my 10 children here in this room." Furthermore, the patient endorses a visual hallucinations stating that she noticed an cigarette "crawl up my leg and into my mouth." The patient has been intermittently adherent with her medications however is not reporting any significant side effects at this time. She denies any suicidal or homicidal ideation, intention, and/or plan. She has been noted by staff to have occasional outbursts. However, the patient is redirectable. The patient maintains that she does not require any IM medications as they make her feel too sedated. She was informed that the long-acting formulations of her antipsychotic should not contribute to that and it should help decrease sedation overall. Mental Status Exam: General Appearance: Patient appears to be stated age is alert, directable, and intermittently cooperative. Behavior: Patient is calmly seated without any agitated behavior. Poor eye contact. Patient blankly stares. Speech: Patient's speech is fluent and nonpressured. Mood/Affect: Mood is "I want to go." Affect is flat. Suicidality/Homicidality: Patient denies having any suicidal or homicidal ideation intent or plan. Perceptions: Patient reports both auditory and visual hallucinations. Though content/process: Patient appears to respond to internal stimuli. Memory and concentration: AOX3, grossly intact for the purposes of this session Judgment and insight: Very poor Vital Signs Temp 97.4 F L 01/23/22 07:00 Pulse 104 H 01/24/22 09:29 Resp 20 01/22/22 21:32 BP 111/58 01/24/22 09:29 Pulse Ox 98 01/23/22 07:00 FiO2 Intake & Output 01/23/22 01/24/22 01/24/22 18:59 06:59 18:59 Weight 87.1 kg Assessment Schizoaffective disorder, bipolar type Posttraumatic stress disorder Cannabis use disorder Tobacco use disorder Plan: -Patient continues to meet criteria for inpatient psychiatric admission for symptom stabilization and safety. The patient has been petitioned and certified. Court scheduled for 02/02/2022. Patient deferred however we will file a demand for court. -Medications: Increase Risperdal to 3 mg by mouth twice a day for psychosis. Plan is to transition patient back to [facility]. Continue trazodone 200 mg by mouth at bedtime for insomnia -When necessary Ativan and Haldol for agitation/aggression. -NRT - nicotine patch -SW on board for discharge planning. Encouraged the patient to participate in milieu.
[2022-01-24] MEDS ORDERED: haloperidoL 5 MG TAB PO PRN (12:01)
[2022-01-24] MEDS ORDERED: HALOPERIDOL LACTATE 5 MG/ML 1 ML VIAL IM PRN (12:01)
[2022-01-24] MEDS: CHOLECALCIFEROL 125 MCG (5000 IU) TABLET PO SCH (15:43)
[2022-01-24] MEDS: metFORMIN 850 MG TAB PO SCH (18:10)
[2022-01-24] MEDS: MONTELUKAST 10 MG TAB PO SCH (22:30)
[2022-01-25] MEDS: FAMOTIDINE 20 MG TAB PO SCH ×3 (00:28→21:27)
[2022-01-25] MEDS: ATORVASTATIN 20 MG TAB PO SCH ×2 (00:28→21:27)
[2022-01-25] MEDS: traZODone HCL 100 MG TAB PO SCH ×2 (00:28→21:28)
[2022-01-25] MEDS: CHOLECALCIFEROL 125 MCG (5000 IU) TABLET PO SCH (08:49)
[2022-01-25] MEDS: FLUTICASONE 44 MCG INHALATION SCH ×2 (08:50→21:28)
[2022-01-25] MEDS: LORATADINE 10 MG TAB PO SCH (08:50)
[2022-01-25] MEDS: risperiDONE 1 MG TAB PO SCH ×2 (08:50→21:28)
[2022-01-25] MEDS: lisinopriL 10 MG TAB PO SCH (08:51)
--- NOTE | 2022-01-25 10:11 | P.PN ---
Progress Note - Text Progress Note Date: 01/25/22 Interval History: Patient was seen wandering the hallways and was directable and agreeable to speak with promotion writer in her room. Currently, the patient continues to respond to internal stimuli. She reports that she is feeling very upset today. She states that her child had his "toes split open." The patient reports that her son told her so. She does report that she is able to speak with her children while admitted onto the psychiatric unit. She does report some visual hallucinations however is refusing to elaborate. She was nonadherent with her medications this morning. She expresses that she is having problems with sleep as well. She denies any suicidal or homicidal ideation at this time. She irritably states to this provider that he should be the one that should take the medications. Mental Status Exam: General Appearance: Patient appears to be stated age is alert, and intermittently cooperative. Behavior: Patient is calmly lying down in bed without any agitated behavior. Poor eye contact. Patient blankly stares. Speech: Patient's speech is fluent and nonpressured. Mood/Affect: Mood is "I'm angry" Affect is blunted but irritable. Suicidality/Homicidality: Patient denies having any suicidal or homicidal ideation intent or plan. Perceptions: Patient reports both auditory and visual hallucinations. Though content/process: Patient appears to respond to internal stimuli. Memory and concentration: AOX3, grossly intact for the purposes of this session Judgment and insight: Very poor Vital Signs Temp 97.4 F L 01/25/22 07:07 Pulse 97 01/25/22 07:07 Resp 20 01/22/22 21:32 BP 90/54 01/25/22 07:07 Pulse Ox 98 01/25/22 07:07 FiO2 Assessment Schizoaffective disorder, bipolar type Posttraumatic stress disorder Cannabis use disorder Tobacco use disorder Plan: -Patient continues to meet criteria for inpatient psychiatric admission for symptom stabilization and safety. The patient has been petitioned and certified. Court scheduled for 02/02/2022. Patient deferred however we will file a demand for court. -Medications: Continue Risperdal to 3 mg by mouth twice a day for psychosis. Plan is to transition patient back to [facility]. Patient however refused her Risperdal this morning. Continue trazodone 200 mg by mouth at bedtime for insomnia -When necessary Ativan and Haldol for agitation/aggression. -NRT - nicotine patch -SW on board for discharge planning. Encouraged the patient to participate in milieu.
[2022-01-25] MEDS: metFORMIN 850 MG TAB PO SCH (16:06)
[2022-01-25] MEDS: NICOTINE GUM (POLACRILEX) 2 MG GUM BUCCAL PRN ×2 (16:09→19:53)
[2022-01-25] MEDS: MONTELUKAST 10 MG TAB PO SCH (21:28)
[2022-01-26] MEDS: FAMOTIDINE 20 MG TAB PO SCH ×2 (08:40→19:52)
[2022-01-26] MEDS: CHOLECALCIFEROL 125 MCG (5000 IU) TABLET PO SCH (08:40)
[2022-01-26] MEDS: lisinopriL 10 MG TAB PO SCH (08:40)
[2022-01-26] MEDS: risperiDONE 1 MG TAB PO SCH ×2 (08:40→19:53)
[2022-01-26] MEDS: LORATADINE 10 MG TAB PO SCH (08:40)
[2022-01-26] MEDS: FLUTICASONE 44 MCG INHALATION SCH ×2 (08:40→19:53)
--- NOTE | 2022-01-26 12:04 | P.PN ---
Progress Note - Text Progress Note Date: 01/26/22 Interval History: Patient was seen resting in bed and did not wish to speak with this provider. She refused to answer any questions by this provider. She has been refusing her medications as well. Attempts to have the patient cooperate are met with futility at this time. Mental Status Exam: General Appearance: Patient appears to be stated age is alert but not cooperative today. Behavior: Patient is calmly lying down in bed without any agitated behavior. Poor eye contact. Patient refuses to face the provider. Speech: Patient's speech is monotone, short, abrupt. Mood/Affect: Unable to assess mood. Affect is blunted but irritable. Suicidality/Homicidality: Unable to assess Perceptions: Unable to assess Though content/process: Unable to assess Memory and concentration: Unable to assess Judgment and insight: Very poor Vital Signs Temp 96.8 F L 01/26/22 06:38 Pulse 65 01/26/22 06:38 Resp 20 01/26/22 06:38 BP 90/54 01/25/22 07:07 Pulse Ox 98 01/26/22 06:38 FiO2 Assessment Schizoaffective disorder, bipolar type Posttraumatic stress disorder Cannabis use disorder Tobacco use disorder Plan: -Patient continues to meet criteria for inpatient psychiatric admission for symptom stabilization and safety. The patient has been petitioned and certified. Court scheduled for 02/02/2022. A demand has been filed for court -Medications: Patient has been refusing medications. Continue Risperdal to 3 mg by mouth twice a day for psychosis. Plan is to transition patient back to [facility]. Continue trazodone 200 mg by mouth at bedtime for insomnia -When necessary Ativan and Haldol for agitation/aggression. -NRT - nicotine patch - on board for discharge planning. Encouraged the patient to participate in milieu.
[2022-01-26 12:35] LABS: Glucose,Whole Blood 90 mg/dL (70-110)
[2022-01-26] MEDS: metFORMIN 850 MG TAB PO SCH (16:49)
[2022-01-26] MEDS: ATORVASTATIN 20 MG TAB PO SCH (19:52)
[2022-01-26] MEDS: MONTELUKAST 10 MG TAB PO SCH (19:53)
[2022-01-26] MEDS: traZODone HCL 100 MG TAB PO SCH (19:53)
[2022-01-26] MEDS: NICOTINE GUM (POLACRILEX) 2 MG GUM BUCCAL PRN (22:44)
[2022-01-27] MEDS: NICOTINE GUM (POLACRILEX) 2 MG GUM BUCCAL PRN (05:56)
[2022-01-27] MEDS: CHOLECALCIFEROL 125 MCG (5000 IU) TABLET PO SCH (07:46)
[2022-01-27] MEDS: FAMOTIDINE 20 MG TAB PO SCH ×2 (07:46→19:58)
[2022-01-27] MEDS: lisinopriL 10 MG TAB PO SCH (07:46)
[2022-01-27] MEDS: LORATADINE 10 MG TAB PO SCH (07:46)
[2022-01-27] MEDS: FLUTICASONE 44 MCG INHALATION SCH ×2 (07:46→19:58)
[2022-01-27] MEDS: risperiDONE 1 MG TAB PO SCH ×2 (07:46→19:58)
--- NOTE | 2022-01-27 11:47 | P.PN ---
Progress Note - Text Progress Note Date: 01/27/22 Interval History: Patient was seen wandering the hallways and was directable and agreeable to speak with communications writer in the office. Currently, the patient is not endorsing any significant symptoms of depression or anxiety at this time. She denies any suicidal or homicidal ideation, and/or plan. The patient continues to endorse auditory hallucinations. She states that she is able to hear her children speak to her. She is not reporting any visual hallucinations at this time. She is not reporting any overt paranoid or bizarre delusions. She is nonadherent with any medications. She understands that she is waiting for court. Mental Status Exam: General Appearance: Patient appears to be stated age is alert, and cooperative today. Behavior: Patient was seen attending group. While in the office, she is calmly seated with fair eye contact. Speech: Patient's speech is fluent and nonpressured. Mood/Affect: Mood is "I'm okay." Affect is flat. Suicidality/Homicidality: Patient denies having any suicidal or homicidal ideation intent or plan. Perceptions: Patient reports auditory hallucinations. No visual hallucinations. Though content/process: Patient appears to respond to internal stimuli. Memory and concentration: AOX3, grossly intact for the purposes of this session Judgment and insight: Very poor Assessment Schizoaffective disorder, bipolar type Posttraumatic stress disorder Cannabis use disorder Tobacco use disorder Plan: -Patient continues to meet criteria for inpatient psychiatric admission for symptom stabilization and safety. The patient has been petitioned and certified. Demand has been filed for court. -Medications: Patient has been refusing her medications. We are awaiting a court order. Continue Risperdal to 3 mg by mouth twice a day for psychosis. Plan is to transition patient back to [facility]. Continue trazodone 200 mg by mouth at bedtime for insomnia -When necessary Ativan and Haldol for agitation/aggression. -NRT - nicotine patch -SW on board for discharge planning. Encouraged the patient to participate in milieu.
[2022-01-27] MEDS: metFORMIN 850 MG TAB PO SCH (17:28)
[2022-01-27] MEDS: MAGNESIUM HYDROXIDE 2,400 MG/10 ML CUP PO PRN (19:40)
[2022-01-27] MEDS: MONTELUKAST 10 MG TAB PO SCH (19:58)
[2022-01-27] MEDS: ATORVASTATIN 20 MG TAB PO SCH (19:58)
[2022-01-27] MEDS: traZODone HCL 100 MG TAB PO SCH (19:58)
[2022-01-28] MEDS: FAMOTIDINE 20 MG TAB PO SCH ×2 (08:33→21:10)
[2022-01-28] MEDS: CHOLECALCIFEROL 125 MCG (5000 IU) TABLET PO SCH (08:33)
[2022-01-28] MEDS: FLUTICASONE 44 MCG INHALATION SCH ×2 (08:33→21:10)
[2022-01-28] MEDS: lisinopriL 10 MG TAB PO SCH (08:33)
[2022-01-28] MEDS: risperiDONE 1 MG TAB PO SCH ×2 (08:34→21:10)
[2022-01-28] MEDS: LORATADINE 10 MG TAB PO SCH (08:34)
--- NOTE | 2022-01-28 15:05 | P.PN ---
Progress Note - Text Progress Note Date: 01/28/22 Interval History: Patient was seen wandering the hallways and was directable and agreeable to speak with real estate underwriter in the office. Patient presents as grossly psychotic, is attending to internal stimuli with loose associations and thought blocking. Her insight and judgment are poor. She states "I want to go home... I killed today (who did you kill?) I killed woman.... I'm tired of being fucked with.... My friend Ender has girls." She denies any suicidal ideations or plan. She denies homicidal ideations when asked, but just made statements about having "killed" today. She endorses auditory hallucinations. She is not reporting any visual hallucinations at this time. She is noncompliant with medications and states she doesn't want to take any medications. Mental Status Exam: General Appearance: Patient appears to be obese female with marginal hygiene and hirsutism, appears stated age. Orientation: Alert, oriented to person, place, time Behavior: Patient does not become agitated on assessment, but does have an intense and irritable edge. Speech: Patient's speech is fluent and nonpressured. Mood/Affect: Mood is "I'm ready to go". Affect is flat. Suicidality/Homicidality: Patient denies having any suicidal ideation intent or plan. She denies homicidal ideations but also makes statements about having "killed" today. Perceptions: Patient reports auditory hallucinations. No visual hallucinations. Patient is overtly responding to internal stimuli. Though content: Focused on discharged. Thought process: Thought blocking, loose associations. Memory and concentration: Impaired due to severity of psychosis Judgment and insight: Very poor Assessment Schizoaffective disorder, bipolar type Posttraumatic stress disorder Cannabis use disorder Tobacco use disorder Plan: -Patient continues to meet criteria for inpatient psychiatric admission for symptom stabilization and safety. The patient has been petitioned and certified. Demand has been filed for court. -Medications: Patient has been refusing her medications. We are awaiting a court order. Continue Risperdal to 3 mg by mouth twice a day for psychosis. Plan is to transition patient back [facility]. Continue Trazodone 200 mg by mouth at bedtime for insomnia -When necessary Ativan and Haldol for agitation/aggression. -NRT - nicotine patch -SW on board for discharge planning. Encouraged the patient to participate in milieu.
[2022-01-28] MEDS: metFORMIN 850 MG TAB PO SCH (15:46)
[2022-01-28] MEDS: MAGNESIUM HYDROXIDE 2,400 MG/10 ML CUP PO PRN (19:50)
[2022-01-28] MEDS: ATORVASTATIN 20 MG TAB PO SCH (21:09)
[2022-01-28] MEDS: traZODone HCL 100 MG TAB PO SCH (21:10)
[2022-01-28] MEDS: MONTELUKAST 10 MG TAB PO SCH (21:10)
[2022-01-29] MEDS: CHOLECALCIFEROL 125 MCG (5000 IU) TABLET PO SCH (09:36)
[2022-01-29] MEDS: FLUTICASONE 44 MCG INHALATION SCH ×2 (09:36→20:35)
[2022-01-29] MEDS: FAMOTIDINE 20 MG TAB PO SCH ×2 (09:36→20:35)
[2022-01-29] MEDS: LORATADINE 10 MG TAB PO SCH (09:37)
[2022-01-29] MEDS: risperiDONE 1 MG TAB PO SCH ×2 (09:37→20:35)
[2022-01-29] MEDS: lisinopriL 10 MG TAB PO SCH (09:37)
[2022-01-29] MEDS: polyethylene glycoL 3350 17 GM POWD.PACK PO SCH (17:31)
[2022-01-29] MEDS: metFORMIN 850 MG TAB PO SCH (17:36)
[2022-01-29] MEDS: MONTELUKAST 10 MG TAB PO SCH (20:35)
[2022-01-29] MEDS: traZODone HCL 100 MG TAB PO SCH (20:35)
[2022-01-29] MEDS: ATORVASTATIN 20 MG TAB PO SCH (20:35)
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
[2022-01-30] MEDS: lisinopriL 10 MG TAB PO SCH (09:00)
[2022-01-30] MEDS: CHOLECALCIFEROL 125 MCG (5000 IU) TABLET PO SCH (09:00)
[2022-01-30] MEDS: FAMOTIDINE 20 MG TAB PO SCH ×2 (09:00→20:09)
[2022-01-30] MEDS: FLUTICASONE 44 MCG INHALATION SCH ×2 (09:00→20:09)
[2022-01-30] MEDS: LORATADINE 10 MG TAB PO SCH (09:01)
[2022-01-30] MEDS: risperiDONE 1 MG TAB PO SCH ×2 (09:01→20:09)
[2022-01-30] MEDS: polyethylene glycoL 3350 17 GM POWD.PACK PO SCH (09:01)
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
[2022-01-30] MEDS: metFORMIN 850 MG TAB PO SCH (18:11)
[2022-01-30] MEDS: ATORVASTATIN 20 MG TAB PO SCH (20:09)
[2022-01-30] MEDS: MONTELUKAST 10 MG TAB PO SCH (20:09)
[2022-01-30] MEDS: traZODone HCL 100 MG TAB PO SCH (20:09)
[2022-01-31] MEDS: LORATADINE 10 MG TAB PO SCH (08:49)
[2022-01-31] MEDS: polyethylene glycoL 3350 17 GM POWD.PACK PO SCH (08:49)
[2022-01-31] MEDS: FLUTICASONE 44 MCG INHALATION SCH ×2 (08:49→19:50)
[2022-01-31] MEDS: risperiDONE 1 MG TAB PO SCH ×2 (08:49→19:51)
[2022-01-31] MEDS: lisinopriL 10 MG TAB PO SCH (08:49)
[2022-01-31] MEDS: CHOLECALCIFEROL 125 MCG (5000 IU) TABLET PO SCH (08:49)
[2022-01-31] MEDS: FAMOTIDINE 20 MG TAB PO SCH ×2 (08:49→19:50)
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
[2022-01-31] MEDS: metFORMIN 850 MG TAB PO SCH (17:22)
[2022-01-31] MEDS: MONTELUKAST 10 MG TAB PO SCH (19:50)
[2022-01-31] MEDS: ATORVASTATIN 20 MG TAB PO SCH (19:50)
[2022-01-31] MEDS: NICOTINE GUM (POLACRILEX) 2 MG GUM BUCCAL PRN (19:50)
[2022-01-31] MEDS: traZODone HCL 100 MG TAB PO SCH (19:51)
[2022-02-01] MEDS: LORazepam 1 MG TAB PO PRN (00:55)
[2022-02-01] MEDS: FAMOTIDINE 20 MG TAB PO SCH ×2 (09:39→20:13)
[2022-02-01] MEDS: FLUTICASONE 44 MCG INHALATION SCH ×2 (09:39→20:13)
[2022-02-01] MEDS: LORATADINE 10 MG TAB PO SCH (09:39)
[2022-02-01] MEDS: risperiDONE 1 MG TAB PO SCH ×2 (09:39→20:13)
[2022-02-01] MEDS: polyethylene glycoL 3350 17 GM POWD.PACK PO SCH (09:39)
[2022-02-01] MEDS: CHOLECALCIFEROL 125 MCG (5000 IU) TABLET PO SCH (09:39)
[2022-02-01] MEDS: lisinopriL 10 MG TAB PO SCH (09:39)
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
[2022-02-01] MEDS: NICOTINE GUM (POLACRILEX) 2 MG GUM BUCCAL PRN (14:42)
[2022-02-01] MEDS: metFORMIN 850 MG TAB PO SCH (17:13)
[2022-02-01] MEDS: ATORVASTATIN 20 MG TAB PO SCH (20:13)
[2022-02-01] MEDS: traZODone HCL 100 MG TAB PO SCH (20:13)
[2022-02-01] MEDS: MONTELUKAST 10 MG TAB PO SCH (20:13)
[2022-02-02] MEDS: CHOLECALCIFEROL 125 MCG (5000 IU) TABLET PO SCH (08:46)
[2022-02-02] MEDS: FAMOTIDINE 20 MG TAB PO SCH ×3 (08:46→21:34)
[2022-02-02] MEDS: lisinopriL 10 MG TAB PO SCH (09:06)
[2022-02-02] MEDS: FLUTICASONE 44 MCG INHALATION SCH ×2 (09:06→21:33)
[2022-02-02] MEDS: polyethylene glycoL 3350 17 GM POWD.PACK PO SCH (09:06)
[2022-02-02] MEDS: LORATADINE 10 MG TAB PO SCH (09:06)
[2022-02-02] MEDS: risperiDONE 1 MG TAB PO SCH (09:06)
[2022-02-02] MEDS ORDERED: flUPHENAZine 2.5 MG/ML (MDV) 10 ML VIAL IM PRN (12:40)
--- NOTE | 2022-02-02 12:40 | P.PN ---
Progress Note - Text Progress Note Date: 02/02/22 Interval History: Patient was seen resting in bed however refused to participate in the psychiatric interview. She also refused medications and refused to attend court. She is now court ordered for psychiatric treatment. Attempts to have the patient participate in the psychiatric interview were met with futility. Mental Status Exam: General Appearance: Patient appears to be stated age is alert but not cooperative or directable today. Behavior: Patient displays normal psychomotor activity. Speech: Patient's speech is fluent and nonpressured. Monotone. Mood/Affect: Mood is "I don't want to talk." Affect is flat. Suicidality/Homicidality: Unable to assess Perceptions: Unable to assess Though content/process: Unable to assess Memory and concentration: Unable to assess Judgment and insight: Very poor Vital Signs Temp 97.8 F 02/02/22 06:44 Pulse 77 02/02/22 06:44 Resp 16 02/02/22 06:44 BP 86/54 02/02/22 06:44 Pulse Ox 98 01/26/22 06:38 FiO2 Assessment Schizoaffective disorder, bipolar type Posttraumatic stress disorder Cannabis use disorder Tobacco use disorder Plan: -Patient continues to meet criteria for inpatient psychiatric admission for symptom stabilization and safety. Awaiting court order paper work. -Medications: Once we receive court-order paper work we will start Prolixin IM should she refuse ordered invega. -When necessary Ativan and Haldol for agitation/aggression. -NRT - nicotine patch -SW on board for discharge planning. Encouraged the patient to participate in milieu.
[2022-02-02] MEDS: metFORMIN 850 MG TAB PO SCH (16:29)
[2022-02-02] MEDS: MONTELUKAST 10 MG TAB PO SCH ×2 (21:24→21:34)
[2022-02-02] MEDS: traZODone HCL 100 MG TAB PO SCH ×2 (21:25→21:34)
[2022-02-02] MEDS: PALIPERIDONE 3 MG TAB.ER.24 PO SCH ×2 (21:25→21:34)
[2022-02-02] MEDS: ATORVASTATIN 20 MG TAB PO SCH ×2 (21:25→21:34)
[2022-02-03] MEDS: NICOTINE GUM (POLACRILEX) 2 MG GUM BUCCAL PRN ×2 (01:09→16:51)
[2022-02-03] MEDS: polyethylene glycoL 3350 17 GM POWD.PACK PO SCH (09:24)
[2022-02-03] MEDS: CHOLECALCIFEROL 125 MCG (5000 IU) TABLET PO SCH (09:24)
[2022-02-03] MEDS: FLUTICASONE 44 MCG INHALATION SCH ×2 (09:24→21:36)
[2022-02-03] MEDS: FAMOTIDINE 20 MG TAB PO SCH ×2 (09:24→21:36)
[2022-02-03] MEDS: LORATADINE 10 MG TAB PO SCH (09:24)
[2022-02-03] MEDS: lisinopriL 10 MG TAB PO SCH (09:24)
[2022-02-03] MEDS ORDERED: flUPHENAZine 2.5 MG/ML (MDV) 10 ML VIAL IM PRN (10:00)
[2022-02-03] MEDS: MAGNESIUM HYDROXIDE 2,400 MG/10 ML CUP PO PRN (12:17)
--- NOTE | 2022-02-03 13:25 | P.PN ---
Progress Note - Text Progress Note Date: 02/03/22 Interval History: Patient was seen standing in the hallway however refused to participate in the psychiatric interview. The patient states that she is being discharged today. She was informed that she is not and that she needs to take medications. She continues to refuse any medications. We are awaiting court order paperwork prior to administration of IM medications. Mental Status Exam: General Appearance: Patient appears to be stated age is alert but not cooperativ e or directable today. Behavior: Patient displays normal psychomotor activity. Speech: Patient's speech is fluent and nonpressured. Monotone. Mood/Affect: Mood is "I am being discharged today." Affect is flat. Suicidality/Homicidality: Unable to assess Perceptions: Unable to assess Though content/process: Unable to assess Memory and concentration: Unable to assess Judgment and insight: Very poor Vital Signs Temp 98.1 F 02/03/22 01:16 Pulse 69 02/03/22 01:16 Resp 16 02/03/22 01:16 BP 103/58 02/03/22 01:16 Pulse Ox 98 01/26/22 06:38 FiO2 Assessment Schizoaffective disorder, bipolar type Posttraumatic stress disorder Cannabis use disorder Tobacco use disorder Plan: -Patient continues to meet criteria for inpatient psychiatric admission for symptom stabilization and safety. Awaiting court order paper work. -Medications: Once we receive court-order paper work we will start Prolixin 2.5 mg IM should she refuse ordered invega. Invega will be scheduled at 3 mg at bedtime for now. -When necessary Ativan and Haldol for agitation/aggression. -NRT - nicotine patch -SW on board for discharge planning. Encouraged the patient to participate in milieu.
[2022-02-03] MEDS: metFORMIN 850 MG TAB PO SCH (16:00)
[2022-02-03] MEDS: PALIPERIDONE 3 MG TAB.ER.24 PO SCH (21:20)
[2022-02-03] MEDS: ATORVASTATIN 20 MG TAB PO SCH (21:36)
[2022-02-03] MEDS: MONTELUKAST 10 MG TAB PO SCH (21:36)
[2022-02-03] MEDS: traZODone HCL 100 MG TAB PO SCH (21:36)
[2022-02-04] MEDS: LORATADINE 10 MG TAB PO SCH (09:05)
[2022-02-04] MEDS: FAMOTIDINE 20 MG TAB PO SCH ×2 (09:05→21:07)
[2022-02-04] MEDS: polyethylene glycoL 3350 17 GM POWD.PACK PO SCH (09:05)
[2022-02-04] MEDS: CHOLECALCIFEROL 125 MCG (5000 IU) TABLET PO SCH (09:05)
[2022-02-04] MEDS: FLUTICASONE 44 MCG INHALATION SCH ×2 (09:05→21:07)
[2022-02-04] MEDS: lisinopriL 10 MG TAB PO SCH (09:05)
[2022-02-04] MEDS: NICOTINE GUM (POLACRILEX) 2 MG GUM BUCCAL PRN (15:41)
[2022-02-04] MEDS: metFORMIN 850 MG TAB PO SCH (18:05)
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
[2022-02-04] MEDS: PALIPERIDONE 6 MG TAB.ER.24 PO SCH (21:04)
[2022-02-04] MEDS: MONTELUKAST 10 MG TAB PO SCH (21:07)
[2022-02-04] MEDS: ATORVASTATIN 20 MG TAB PO SCH (21:07)
[2022-02-04] MEDS: traZODone HCL 100 MG TAB PO SCH (21:08)
[2022-02-05] MEDS: CHOLECALCIFEROL 125 MCG (5000 IU) TABLET PO SCH (08:08)
[2022-02-05] MEDS: FAMOTIDINE 20 MG TAB PO SCH ×2 (08:09→21:10)
[2022-02-05] MEDS: lisinopriL 10 MG TAB PO SCH (08:09)
[2022-02-05] MEDS: polyethylene glycoL 3350 17 GM POWD.PACK PO SCH (08:09)
[2022-02-05] MEDS: FLUTICASONE 44 MCG INHALATION SCH ×2 (08:09→22:32)
[2022-02-05] MEDS: LORATADINE 10 MG TAB PO SCH (08:09)
--- NOTE | 2022-02-05 11:03 | P.PN ---
Subjective Progress Note Date: 02/05/22 Principal diagnosis: Assessment Schizoaffective disorder, bipolar type Posttraumatic stress disorder Cannabis use disorder Tobacco use disorder Patient was seen in her room where she was sleeping in the middle of the day Patient stated that she is been here for some time and does not know the days When asked about her symptoms patient states that it's a "long story" When asked about any auditory or visual hallucinations patient states that she is still hearing them Mental Status Exam: General Appearance: Patient appears to be obese female with marginal hygiene and hirsutism, appears stated age. Orientation: Alert, oriented to person, place, time. Behavior: Patient does not become agitated on assessment. No abnormal movements. Speech: Patient's speech is fluent, nonpressured, and monotone. Mood/Affect: Mood is "ok." Affect is blunted and constricted. Suicidality/Homicidality: She denies SI/HI, intent or plan. Perceptions: She endorses auditory and visual hallucinations, is attending to internal stimuli. Though content: Paranoid/persecutory delusions. Thought process: [place]. Memory and concentration: Impaired Judgment and insight: Very poor Assessment Schizoaffective disorder, bipolar type Posttraumatic stress disorder Cannabis use disorder Tobacco use disorder Plan: -Patient continues to meet criteria for inpatient psychiatric admission for s ymptom stabilization and safety. Awaiting court order paper work. -Medications: Continue Invega to 6 mg po QHS for psychosis. Continue Prolixin 2.5 mg IM back-up for refusal of oral Invega. -When necessary Ativan and Haldol for agitation/aggression. -NRT - nicotine patch -JACLYN on board for discharge planning. Encouraged the patient to participate in milieu. Dayne Seymour M.D. 02/05/2022 Objective - Vital Signs Vital signs: Vital Signs Temp 98.1 F 02/03/22 01:16 Pulse 69 02/03/22 01:16 Resp 16 02/03/22 01:16 BP 103/58 02/03/22 01:16 Pulse Ox 98 01/26/22 06:38 FiO2 - Labs CBC & Chem 7: 01/18/22 06:51 01/18/22 06:51
[2022-02-05] MEDS: metFORMIN 850 MG TAB PO SCH (16:07)
[2022-02-05] MEDS: traZODone HCL 100 MG TAB PO SCH (21:10)
[2022-02-05] MEDS: ATORVASTATIN 20 MG TAB PO SCH (21:10)
[2022-02-05] MEDS: MONTELUKAST 10 MG TAB PO SCH (21:10)
[2022-02-05] MEDS: PALIPERIDONE 6 MG TAB.ER.24 PO SCH (21:10)
[2022-02-06] MEDS: FLUTICASONE 44 MCG INHALATION SCH ×2 (08:35→20:41)
[2022-02-06] MEDS: FAMOTIDINE 20 MG TAB PO SCH ×2 (08:35→20:39)
[2022-02-06] MEDS: CHOLECALCIFEROL 125 MCG (5000 IU) TABLET PO SCH (08:35)
[2022-02-06] MEDS: MAGNESIUM HYDROXIDE 2,400 MG/10 ML CUP PO PRN (08:35)
[2022-02-06] MEDS: lisinopriL 10 MG TAB PO SCH ×2 (08:35→20:39)
[2022-02-06] MEDS: LORATADINE 10 MG TAB PO SCH (08:35)
[2022-02-06] MEDS: polyethylene glycoL 3350 17 GM POWD.PACK PO SCH (08:36)
--- NOTE | 2022-02-06 13:14 | P.PN ---
Subjective Progress Note Date: 02/06/22 Principal diagnosis: Assessment Schizoaffective disorder, bipolar type Posttraumatic stress disorder Cannabis use disorder Tobacco use disorder Patient initially tried to respond but then turned around and went back to sleep She states that she does not want to talk anymore Patient remains uncooperative and unmotivated Patient was seen in her room where she was sleeping in the middle of the day Mental Status Exam: General Appearance: Patient appears to be obese female with marginal hygiene and hirsutism, appears stated age. Orientation: Patient was easily arousable, oriented to person, place, time. Behavior: Patient seemed to get slightly irritated for this interview. No abnormal movements. Speech: Patient's speech is fluent, nonpressured, and monotone. Mood/Affect: Mood is "ok." Affect is blunted and constricted. Suicidality/Homicidality: Patient refused to answer any questions after a brief interaction Perceptions: She endorses auditory and visual hallucinations, yesterday but unable to assess today Though content: Paranoid/persecutory delusions. Thought process: [place]. Memory and concentration: Impaired Judgment and insight: Very poor Assessment Schizoaffective disorder, bipolar type Posttraumatic stress disorder Cannabis use disorder Tobacco use disorder Plan: -Patient continues to meet criteria for inpatient psychiatric admission for symp yanique stabilization and safety. Awaiting court order paper work. -Medications: Continue Invega to 6 mg po QHS for psychosis. Continue Prolixin 2.5 mg IM back-up for refusal of oral Invega. -When necessary Ativan and Haldol for agitation/aggression. -NRT - nicotine patch - on board for discharge planning. Encouraged the patient to participate in milieu. Dayne Seymour M.D. 02/06/2022 Objective - Vital Signs Vital signs: Vital Signs Temp 98.1 F 02/03/22 01:16 Pulse 111 H 02/06/22 08:36 Resp 16 02/03/22 01:16 BP 111/68 02/06/22 08:36 Pulse Ox 98 01/26/22 06:38 FiO2 Intake & Output 02/05/22 02/06/22 02/06/22 18:59 06:59 18:59 Weight 88.4 kg - Labs CBC & Chem 7: 01/18/22 06:51 01/18/22 06:51
[2022-02-06] MEDS: metFORMIN 850 MG TAB PO SCH (17:46)
[2022-02-06] MEDS: ATORVASTATIN 20 MG TAB PO SCH (20:39)
[2022-02-06] MEDS: traZODone HCL 100 MG TAB PO SCH (20:39)
[2022-02-06] MEDS: MONTELUKAST 10 MG TAB PO SCH (20:39)
[2022-02-06] MEDS: PALIPERIDONE 6 MG TAB.ER.24 PO SCH (20:39)
[2022-02-07] MEDS: CHOLECALCIFEROL 125 MCG (5000 IU) TABLET PO SCH (09:07)
[2022-02-07] MEDS: FAMOTIDINE 20 MG TAB PO SCH ×2 (09:07→20:42)
[2022-02-07] MEDS: FLUTICASONE 44 MCG INHALATION SCH ×2 (09:07→20:42)
[2022-02-07] MEDS: LORATADINE 10 MG TAB PO SCH (09:07)
[2022-02-07] MEDS: polyethylene glycoL 3350 17 GM POWD.PACK PO SCH (09:08)
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
[2022-02-07] MEDS: metFORMIN 850 MG TAB PO SCH (18:37)
[2022-02-07] MEDS ORDERED: LORazepam 1 MG/0.5 ML VIAL IM PRN (18:44)
[2022-02-07] MEDS: ATORVASTATIN 20 MG TAB PO SCH (20:42)
[2022-02-07] MEDS: MONTELUKAST 10 MG TAB PO SCH (20:42)
[2022-02-07] MEDS: traZODone HCL 100 MG TAB PO SCH (20:43)
[2022-02-07] MEDS ORDERED: PALIPERIDONE 3 MG TAB.ER.24 PO SCH (21:00)
[2022-02-07] MEDS: NICOTINE GUM (POLACRILEX) 2 MG GUM BUCCAL PRN (23:39)
[2022-02-08] MEDS: FAMOTIDINE 20 MG TAB PO SCH ×2 (08:21→21:35)
[2022-02-08] MEDS: CHOLECALCIFEROL 125 MCG (5000 IU) TABLET PO SCH (08:21)
[2022-02-08] MEDS: FLUTICASONE 44 MCG INHALATION SCH ×2 (08:21→21:35)
[2022-02-08] MEDS: lisinopriL 10 MG TAB PO SCH (08:22)
[2022-02-08] MEDS: LORATADINE 10 MG TAB PO SCH (08:22)
[2022-02-08] MEDS: polyethylene glycoL 3350 17 GM POWD.PACK PO SCH (08:22)
[2022-02-08] MEDS ORDERED: PALIPERIDONE IM 234 MG/1.5 ML SYG IM STA (11:15)
[2022-02-08] MEDS: NICOTINE GUM (POLACRILEX) 2 MG GUM BUCCAL PRN ×3 (11:45→21:34)
--- NOTE | 2022-02-08 14:09 | P.PN ---
Progress Note - Text Progress Note Date: 02/08/22 Interval History: Patient was seen resting in bed and refuses to speak with this provider today. She expresses that she is mad at this provider for increasing her dose of Invega yesterday to 9 mg. She was informed that she was told yesterday that the medication was going to be increased however she maintains that this is against her will. She admits to suicidal and homicidal ideation. She is admitting to auditory and visual hallucinations. As she is under court order, the plan is to give her Invega Sustenna today. Mental Status Exam: General Appearance: Patient appears to be stated age is alert, however oppositional and uncooperative. Behavior: Patient is seated with intense eye contact. Speech: Patient's speech is fluent and nonpressured. Loud in volume today. Mood/Affect: Mood is "very upset", affect is congruent and irritated. Suicidality/Homicidality: Patient endorses suicidal and homicidal ideation. Perceptions: Patient continues to endorse auditory and visual hallucinations. Though content/process: She refuses to elaborate on any delusional thought content. She wishes to terminate the psychiatric interview. Memory and concentration: AOX3, grossly intact for the purposes of this session Judgment and insight: Very poor. Vital Signs Temp 98.1 F 02/03/22 01:16 Pulse 104 H 02/07/22 09:04 Resp 18 02/07/22 09:04 BP 120/65 02/08/22 08:22 Pulse Ox 98 01/26/22 06:38 FiO2 Assessment Schizoaffective disorder, bipolar type Posttraumatic stress disorder Cannabis use disorder Tobacco use disorder Plan: -Patient continues to meet criteria for inpatient psychiatric admission for symptom stabilization and safety. The patient is court ordered for medications and psychiatric treatment. -Medications: Administer Invega Sustenna 234 mg IM today. -When necessary Ativan and Haldol for agitation/aggression. -NRT - nicotine patch -SW on board for discharge planning. Encouraged the patient to participate in milieu.
[2022-02-08] MEDS: metFORMIN 850 MG TAB PO SCH (16:19)
[2022-02-08] MEDS: MONTELUKAST 10 MG TAB PO SCH (21:35)
[2022-02-08] MEDS: ATORVASTATIN 20 MG TAB PO SCH (21:35)
[2022-02-08] MEDS: traZODone HCL 100 MG TAB PO SCH (21:35)
[2022-02-09] MEDS: CHOLECALCIFEROL 125 MCG (5000 IU) TABLET PO SCH (09:19)
[2022-02-09] MEDS: FLUTICASONE 44 MCG INHALATION SCH ×3 (09:20→21:21)
[2022-02-09] MEDS: lisinopriL 10 MG TAB PO SCH (09:20)
[2022-02-09] MEDS: MAGNESIUM HYDROXIDE 2,400 MG/10 ML CUP PO PRN (09:20)
[2022-02-09] MEDS: FAMOTIDINE 20 MG TAB PO SCH ×3 (09:20→21:21)
[2022-02-09] MEDS: LORATADINE 10 MG TAB PO SCH (09:20)
[2022-02-09] MEDS: polyethylene glycoL 3350 17 GM POWD.PACK PO SCH (09:21)
[2022-02-09] MEDS: NICOTINE GUM (POLACRILEX) 2 MG GUM BUCCAL PRN ×3 (09:54→18:30)
--- NOTE | 2022-02-09 12:59 | P.PN ---
Progress Note - Text Progress Note Date: 02/09/22 Interval History: Patient was seen wandering the hallways and was initially not agreeable to the psychiatric interview however when informed that we are anticipating discharge soon, became much more cooperative and pleasant. The patient reports no suicidal or homicidal ideation, intention, and/or plan. She continues to endorse occasional auditory hallucinations. She is denying any visual hallucinations. She reports that she felt that Lorne Nazario "was acting up however he seems to be calming down now." She did received invega sustenna yesterday. She reprots no sigificant side effects aside from normal injection site pain. She reports no issues regarding her sleep or her appetite. She continues to express a strong desire for a cigarette. Mental Status Exam: General Appearance: Patient appears to be stated age is alert, directable and cooperative. Behavior: Patient is standing by her room with appropriate eye contact. Speech: Patient's speech is fluent and nonpressured. Mood/Affect: Mood is "doing okay", affect is congruent and flat. Suicidality/Homicidality: Patient denies any suicidal or homicidal ideation. Perceptions: Patient continues to endorse auditory hallucinations but no visual hallucinations. Though content/process: Some bizarre delusional thought content regarding Lorne Nazario but states that this is decreasing. Memory and concentration: AOX3, grossly intact for the purposes of this session Judgment and insight: Mildly improving. Vital Signs Temp 98.1 F 02/03/22 01:16 Pulse 115 H 02/09/22 09:22 Resp 18 02/09/22 09:22 BP 131/56 02/09/22 09:22 Pulse Ox 98 01/26/22 06:38 FiO2 Assessment Schizoaffective disorder, bipolar type Posttraumatic stress disorder Cannabis use disorder Tobacco use disorder Plan: -Patient continues to meet criteria for inpatient psychiatric admission for symptom stabilization and safety. The patient is court ordered for medications and psychiatric treatment. -Medications: Patient received invega sustenna 234 mg IM on 02/08/2022. Second loading dose of 156 mg IM is due on 02/15/2022. -When necessary Ativan and Haldol for agitation/aggression. -NRT - nicotine patch -SW on board for discharge planning. Encouraged the patient to participate in milieu.
[2022-02-09] MEDS: metFORMIN 850 MG TAB PO SCH (16:19)
[2022-02-09] MEDS: traZODone HCL 100 MG TAB PO SCH ×2 (21:17→21:22)
[2022-02-09] MEDS: ATORVASTATIN 20 MG TAB PO SCH ×2 (21:18→21:21)
[2022-02-09] MEDS: MONTELUKAST 10 MG TAB PO SCH ×2 (21:18→21:22)
[2022-02-10] MEDS: FLUTICASONE 44 MCG INHALATION SCH ×2 (09:59→20:58)
[2022-02-10] MEDS: LORATADINE 10 MG TAB PO SCH (09:59)
[2022-02-10] MEDS: FAMOTIDINE 20 MG TAB PO SCH ×2 (10:00→20:02)
[2022-02-10] MEDS: polyethylene glycoL 3350 17 GM POWD.PACK PO SCH (10:00)
[2022-02-10] MEDS: CHOLECALCIFEROL 125 MCG (5000 IU) TABLET PO SCH (10:00)
[2022-02-10] MEDS: NICOTINE GUM (POLACRILEX) 2 MG GUM BUCCAL PRN ×4 (10:02→20:01)
[2022-02-10] MEDS: lisinopriL 10 MG TAB PO SCH (10:02)
--- NOTE | 2022-02-10 12:32 | P.DS ---
Providers Date of admission: 01/17/22 19:59 Expected date of discharge: 02/10/22 Attending physician: Demond Knight MD Consults: 01/17/22 20:12 Consult Physician Routine Consulting Provider: Ania Physician Consult Reason/Comments: H&P and medical Do you want consulting provider notified?: Yes Primary care physician: [facility] - Discharge Diagnosis(es) (1) Schizoaffective disorder, bipolar type Current Visit: Yes Status: Acute Priority: High (2) PTSD (post-traumatic stress disorder) Current Visit: Yes Status: Chronic Priority: Medium (3) Tobacco use disorder Current Visit: Yes Status: Chronic Priority: Medium (4) Cannabis use disorder Current Visit: Yes Status: Chronic Priority: Medium Hospital Course: Admission HPI: Patient is a 51-year-old female with significant history of schizophrenia presented to the hospital for acute psychosis. Patient presented to the hospital on 01/17/2022, brought into the hospital by police after eloping from her [facility] [place] [facility] [place] Reportedly, the patient has been nonadherent with her medications including her regularly scheduled dose of Invega Sustenna. The patient last received the injectable Invega Sustenna on 12/13/2021 and was scheduled for her next injection of 234 mg IM on 01/10/2022. The patient has been petitioned and certified and subsequently admitted to the sychiatric unit. The patient was last seen for a medication review on 12/16/2021. Upon evaluation on the psychiatric unit, the patient is grossly delusional, disorganized, and responding to internal stimuli. She endorses auditory and visual hallucinations. She expresses bizarre delusions of surveillance and paranoia. She reports that "they are after me and my baby." She also reports concern that some government entity is trying to put thoughts into her head. She is unable to provide any clear psychiatric history otherwise at this time. She is unable to recall what medication she has been taking and when she left medications. The patient is currently denying any active suicidal ideation however does have significant decided attempts by cutting. She is currently denying any homicidal ideation, intention, and/or plan. The patient firmly believes that she does not have schizophrenia. She reports that she does not want to take any medications. Patient has previous diagnoses of schizophrenia. The patient's home medication regimen includes Invega Sustenna 234 mg IM, risperidone 1 mg twice a day, trazodone 200 mg at bedtime, Effexor. Patient has had numerous psychiatric hospitalizations. The patient is currently open with [facility]. The patient has had a prior attempt at suicide by cutting. Hospital course: Upon admission to the unit patient was initially uncooperative, endorsing significant psychotic symptoms, and nonadherent with any medications. The patient was subsequently certified. She was uncooperative with any medications or treatment during the initial portion of her hospital stay. The patient was eventually court ordered for mental health treatment on 02/02/2022. Afterwards, the patient was placed on Invega for psychosis with plans to return transition h er back on to Invega Sustenna. The patient's oral Invega was gradually titrated and the patient was adherent with intermittent episodes of irritability and agitation. However, her psychotic symptoms decreased significantly and the patient became more grounded in reality and directable. She became more cooperative with this provider and staff. She was re-transition back on to Invega Sustenna 234 mg on 02/09/2022. She tolerated the medications well. On the day of discharge, the patient is not reporting any suicidal or homicidal ideation, intention, and/or plan. She reports no access to firearms or other weapons. She denies any paranoia but continues to endorse some auditory hallucinations of her son calling out to her. She does remain future and goal oriented. The patient is scheduled to go to an [facility] upon discharge and to continue following up with [facility]. Mental status exam: General Appearance: Patient appears to be stated age is alert, pleasant, and cooperative. Patient is in no acute distress and has fair hygiene and grooming Behavior: Patient is calmly seated without any agitated behavior. Speech: Patient's speech is fluent and nonpressured. Mood/Affect: Patient reports their mood is "ready to go", affect is congruent and euthymic. Suicidality/Homicidality: Patient denies having any suicidal or homicidal ideation intent or plan. Perceptions: Patient denies any auditory or visual hallucinations. Though content/process: There is no evidence of any delusional thought content and thought process is linear and goal-directed. Patient is focused on getting a cigarette. Memory and concentration: AOX3, grossly intact for the purposes of this session. Can spell "WORLD" backwards correctly. Judgment and insight: Improved with guarded prognosis Impression: Schizoaffective disorder, bipolar type Posttraumatic stress disorder Cannabis use disorder Tobacco use disorder Plan: -Continue with discharge today as patient has improved and stabilized psychiatrically and is not currently an imminent threat to herself and/or others. Patient will remain at chronically elevated risk for harm to self and/or others due to her history of severe mental illness -Continue medications: Invega Sustenna 234 mg IM was administered on 02/09/2022. She is scheduled for her next dose of Invega Sustenna 156 mg IM on 02/16/2022. Trazodone 200 mg daily at bedtime for insomnia Nicorette gum for nicotine cessation Pepcid for GERD -Patient was counseled on the need for medication compliance and appropriate follow-up at mental health and also primary care for medical issues. Patient verbalized understanding and agreed. -Social work to arrange for and conduct family meeting to ensure safety upon discharge and answer any questions/concerns. Social work also to arrange for p atients follow up appointments with [facility] for psychiatric care along with follow up with primary care provider. -Patient counseled on abstaining from recreational drugs and marijuana and alcohol. Was informed/educated on the adverse effects on their physical and mental health. Patient verbally agreed and understood. -Patient was instructed to return to the hospital or seek immediate medical care if their psychiatric or medical symptoms do worsen or reoccur. -Psychoeducation and supportive therapy provided to patient. Risks and benefits of pharmacological treatment versus the risks and benefits of nontreatment weight and discussed. Informed consent discussion held. Common side effects of psychotropics discussed such as, but not limited to headache, GI disturbance, sexual dysfunction, movement disorders, sedation, and orthostatic hypotension. Life threatening and blackbox warnings of prescribed medications also discussed. Potential risks of operating a vehicle or heavy machinery discussed with patient at length. Advised on importance of compliance and a reliable and responsible manner. Patient advised to review FDA consumer labeling of all medications prior to taking. Patient verbalized understanding of potential risks, and agrees with current treatment plan. Patient advised to medically contact physician/emergency personnel if any acute changes in condition occur. Vital Signs Temp 98.1 F 02/03/22 01:16 Pulse 115 H 02/09/22 09:22 Resp 18 02/09/22 09:22 BP 145/64 02/10/22 09:58 Pulse Ox 98 01/26/22 06:38 FiO2 Laboratory Results WBC 8.3 k/uL (3.8-10.6) 01/18/22 06:51 RBC 5.23 m/uL (3.80-5.40) 01/18/22 06:51 Hgb 14.7 gm/dL (11.4-16.0) 01/18/22 06:51 Hct 44.2 % (34.0-46.0) 01/18/22 06:51 MCV 84.6 fL (80.0-100.0) 01/18/22 06:51 MCH 28.1 pg (25.0-35.0) 01/18/22 06:51 MCHC 33.2 g/dL (31.0-37.0) 01/18/22 06:51 RDW 14.2 % (11.5-15.5) 01/18/22 06:51 Plt Count 207 k/uL (150-450) 01/18/22 06:51 MPV 8.9 01/18/22 06:51 Neutrophils % 58 % 01/18/22 06:51 Lymphocytes % 31 % 01/18/22 06:51 Monocytes % 6 % 01/18/22 06:51 Eosinophils % 2 % 01/18/22 06:51 Basophils % 1 % 01/18/22 06:51 Neutrophils # 4.9 k/uL (1.3-7.7) 01/18/22 06:51 Lymphocytes # 2.6 k/uL (1.0-4.8) 01/18/22 06:51 Monocytes # 0.5 k/uL (0-1.0) 01/18/22 06:51 Eosinophils # 0.1 k/uL (0-0.7) 01/18/22 06:51 Basophils # 0.1 k/uL (0-0.2) 01/18/22 06:51 Sodium 138 mmol/L (137-145) 01/18/22 06:51 Potassium 4.0 mmol/L (3.5-5.1) 01/18/22 06:51 Chloride 104 mmol/L (98-107) 01/18/22 06:51 Carbon Dioxide 29 mmol/L (22-30) 01/18/22 06:51 Anion Gap 5 mmol/L 01/18/22 06:51 BUN 7 mg/dL (7-17) 01/18/22 06:51 Creatinine 0.63 mg/dL (0.52-1.04) 01/18/22 06:51 Est GFR (CKD-EPI)AfAm >90 (>60 ml/min/1.73 sqM) 01/18/22 06:51 Est GFR (CKD-EPI)NonAf >90 (>60 ml/min/1.73 sqM) 01/18/22 06:51 Glucose 98 mg/dL (74-99) 01/18/22 06:51 POC Glucose (mg/dL) 90 mg/dL (70-110) 01/26/22 12:33 POC Glu Commercial Reporter ID Celi Ybarra 01/26/22 12:[address] Glu mg/dL 123 01/18/22 06:51 Hemoglobin A1c 5.9 % (0.0-6.0) 01/18/22 06:51 Calcium 9.4 mg/dL (8.4-10.2) 01/18/22 06:51 Total Bilirubin 0.6 mg/dL (0.2-1.3) 01/18/22 06:51 AST 44 U/L (14-36) H 01/18/22 06:51 ALT 42 U/L (4-34) H 01/18/22 06:51 Alkaline Phosphatase 72 U/L (38-126) 01/18/22 06:51 Total Protein 6.7 g/dL (6.3-8.2) 01/18/22 06:51 Albumin 4.3 g/dL (3.5-5.0) 01/18/22 06:51 Triglycerides 162.00 mg/dL (0.00-149.00) H 01/18/22 06:51 Cholesterol 121.00 mg/dL (0.00-200.00) 01/18/22 06:51 LDL Cholesterol, Calc 50.0 mg/dL (0.0-131.0) 01/18/22 06:51 VLDL Cholesterol, Calc 32.40 mg/dL (5.00-40.00) 01/18/22 06:51 HDL Cholesterol 38.60 mg/dL (40.00-60.00) L 01/18/22 06:51 Cholesterol/HDL Ratio 3.13 Ratio 01/18/22 06:51 TSH 1.820 mIU/L (0.465-4.680) 01/18/22 06:51 Urine Color Yellow 01/20/22 08:00 Urine Appearance Cloudy (Clear) H 01/20/22 08:00 Urine pH 5.5 (5.0-8.0) 01/20/22 08:00 Ur Specific [place] 1.025 (1.001-1.035) 01/20/22 08:00 Urine Protein 1+ (Negative) H 01/20/22 08:00 Urine Glucose (UA) Trace (Negative) H 01/20/22 08:00 Urine Ketones Negative (Negative) 01/20/22 08:00 Urine Blood Moderate (Negative) H 01/20/22 08:00 Urine Nitrite Negative (Negative) 01/20/22 08:00 Urine Bilirubin 1+ (Negative) H 01/20/22 08:00 Urine Urobilinogen 3.0 mg/dL (<2.0) 01/20/22 08:00 Ur Leukocyte Esterase Large (Negative) H 01/20/22 08:00 Urine RBC 16 /hpf (0-5) H 01/20/22 08:00 Urine WBC 15 /hpf (0-5) H 01/20/22 08:00 Ur Squamous Epith Cells 32 /hpf (0-4) H 01/20/22 08:00 Amorphous Sediment Rare /hpf (None) H 01/20/22 08:00 Urine Bacteria Moderate /hpf (None) H 01/20/22 08:00 Urine Mucus Many /hpf (None) H 01/20/22 08:00 Urine Opiates Screen Not Detected (NotDetected) 01/17/22 15:22 Ur Oxycodone Screen Not Detected (NotDetected) 01/17/22 15:22 Urine Methadone Screen Not Detected (NotDetected) 01/17/22 15:22 Ur Propoxyphene Screen Not Detected (NotDetected) 01/17/22 15:22 Ur Barbiturates Screen Not Detected (NotDetected) 01/17/22 15:22 U Tricyclic Antidepress Not Detected (NotDetected) 01/17/22 15:22 Ur Phencyclidine Scrn Not Detected (NotDetected) 01/17/22 15:22 Ur Amphetamines Screen Not Detected (NotDetected) 01/17/22 15:22 U Methamphetamines Scrn Not Detected (NotDetected) 01/17/22 15:22 U Benzodiazepines Scrn Not Detected (NotDetected) 01/17/22 15:22 Urine Cocaine Screen Not Detected (NotDetected) 01/17/22 15:22 U Marijuana (THC) Screen Not Detected (NotDetected) 01/17/22 15:22 Coronavirus (PCR) Not Detected (Not Detectd) 01/17/22 17:07 Allergies Allergy/AdvReac Type Severity Reaction Status Date / Time codeine Allergy Unknown Verified 01/17/22 21:43 Patient Condition at Discharge: Stable Plan - Discharge Summary Discharge Rx Participant: No New Discharge Prescriptions: New traZODone HCL [Desyrel] 200 mg PO HS@2099 30 Days tab Nicotine Gum (Polacrilex) [Nicorette] 2 mg BUCCAL Q2HR PRN 30 Days pieceofgum PRN Reason: Nicotine Cravings Famotidine [Pepcid] 20 mg PO BID@0800,2099 30 Days tab Paliperidone IM [Invega Sustenna] 156 mg IM QMONTHLY #1 each Continue Loratadine 10 mg PO DAILY@0800 Lactulose 10 gm PO DAILY PRN PRN Reason: Constipation metFORMIN HCL [Glucophage] 850 mg PO W/SUPPER@1700 lisinopriL [Zestril] 20 mg PO DAILY@0800 Glucerna Shake 1 can PO DAILY@0800 Fluticasone Propionate 44 Mcg [Flovent 44 Mcg Inhaler] 1 puff INHALATION RT- BID@0800,2099 Ammonium Lactate Cream [Lac-Hydrin 12% Cream] 1 applic TOPICAL DAILY@0800 PRN PRN Reason: BOTH FEET Albuterol Inhaler [Ventolin Hfa Inhaler] 2 puff INHALATION RT-Q6H PRN PRN Reason: Shortness Of Breath Robafen Syp 100/5ml 1 dose PO DIRECTED PRN PRN Reason: COUGH/COLD SYMPTOMS Metamucil [place] 1 dose PO DIRECTED PRN PRN Reason: Constipation Aristeo-Tin Liq 1 dose PO DIRECTED PRN PRN Reason: Diarrhea Cholecalciferol [Vitamin D3 (125 Mcg = 5000 Iu)] 125 mcg PO DAILY@0800 Olopatadine HCl [Pataday] 1 drop BOTH EYES DAILY@0800 Montelukast Sodium [Singulair] 10 mg PO HS@2100 Famotidine 20 mg PO BID@08,2099 Atorvastatin [Lipitor] 20 mg PO HS@2100 Discontinued Pseudoephedrine [Sudafed] 30 mg PO DIRECTED Magnesium Hydroxide [Milk of Magnesia] 1,200 mg PO DIRECTED PRN PRN Reason: Constipation Loperamide HCl [Imodium A-D] 2 mg PO DIRECTED PRN PRN Reason: Diarrhea Ibuprofen [Motrin Ib] 200 mg PO DIRECTED Docusate [Colace] 100 mg PO DIRECTED PRN PRN Reason: Constipation Aspirin EC [Ecotrin] 325 mg PO DIRECTED traZODone HCL 200 mg PO HS@2100 risperiDONE [RisperDAL] 1 mg PO BID@799,2099 Venlafaxine HCl [Effexor XR] 150 mg PO DAILY@08 [id number]-Gfli Oint [Triple Antibiotic Ointment] 1 applic TOPICAL DIRECTED PRN PRN Reason: MINOR ABRASIONS, CUTS, TIDWELL Acetaminophen [Tylenol] 325 mg PO DIRECTED PRN PRN Reason: Fever And/ Or Pain Paliperidone IM [Invega Sustenna] 234 mg IM QMONTHLY Discharge Medication List Albuterol Inhaler [Ventolin Hfa Inhaler] 2 puff INHALATION RT-Q6H PRN 01/17/22 [History] Ammonium Lactate Cream [Lac-Hydrin 12% Cream] 1 applic TOPICAL DAILY@0800 PRN 01/17/22 [History] Atorvastatin [Lipitor] 20 mg PO HS@209901/17/22 [History] Cholecalciferol [Vitamin D3 (125 Mcg = 5000 Iu)] 125 mcg PO DAILY@79901/17/22 [History] Famotidine 20 mg PO BID@08,209901/17/22 [History] Fluticasone Propionate 44 Mcg [Flovent 44 Mcg Inhaler] 1 puff INHALATION RT- BID@799,209901/17/22 [History] Glucerna Shake 1 can PO DAILY@0801/17/22 [History] Aristeo-Tin Liq 1 dose PO DIRECTED PRN 01/17/22 [History] Lactulose 10 gm PO DAILY PRN 01/17/22 [History] Loratadine 10 mg PO DAILY@0801/17/22 [History] Metamucil [place] 1 dose PO DIRECTED PRN 01/17/22 [History] Montelukast Sodium [Singulair] 10 mg PO HS@2100 01/17/22 [History] Olopatadine HCl [Pataday] 1 drop BOTH EYES DAILY@0801/17/22 [History] Robafen Syp 100/5ml 1 dose PO DIRECTED PRN 01/17/22 [History] lisinopriL [Zestril] 20 mg PO DAILY@0801/17/22 [History] metFORMIN HCL [Glucophage] 850 mg PO W/SUPPER@1700 01/17/22 [History] Famotidine [Pepcid] 20 mg PO BID@0800,2099 30 Days tab 02/10/22 [Rx] Nicotine Gum (Polacrilex) [Nicorette] 2 mg BUCCAL Q2HR PRN 30 Days pieceofgum 02/10/22 [Rx] Paliperidone IM [Invega Sustenna] 156 mg IM QMONTHLY #1 each 02/10/22 [Rx] traZODone HCL [Desyrel] 200 mg PO HS@2100 30 Days tab 02/10/22 [Rx] Follow up Appointment(s)/Referral(s): [facility] [Outside] - 02/10/22 3:30 pm (02-22-22 at 10:[address] Gonzalez) None,Stated [REFERRING] - 1-2 days Activity/Diet/Wound Care/Special Instructions: Avoid the use of street drugs and alcohol. Take all prescriptions as prescribed. When you are in need of refills on your medications, please contact your medical provider and/or outpatient psychiatrist to have this done. Please go to scheduled outpatient appointment for aftercare treatment. If symptoms return or become worse, call the crisis line at and/or go to the nearest emergency room for evaluation.
[2022-02-10] MEDS ORDERED: flUPHENAZine 2.5 MG/ML (MDV) 10 ML VIAL IM PRN (15:45)
[2022-02-10 16:59] LABS: Glucose,Whole Blood 111 mg/dL (70-110)
[2022-02-10] MEDS: metFORMIN 850 MG TAB PO SCH (17:00)
[2022-02-10 20:02] LABS: Glucose,Whole Blood 138 mg/dL (70-110)
[2022-02-10] MEDS: MONTELUKAST 10 MG TAB PO SCH (20:58)
[2022-02-10] MEDS: ATORVASTATIN 20 MG TAB PO SCH (20:58)
[2022-02-10] MEDS: traZODone HCL 100 MG TAB PO SCH (20:58)
[2022-02-10] MEDS ORDERED: risperiDONE 2 MG TAB PO SCH (21:00)
[2022-02-11] MEDS: lisinopriL 10 MG TAB PO SCH (09:05)
[2022-02-11] MEDS: CHOLECALCIFEROL 125 MCG (5000 IU) TABLET PO SCH (09:05)
[2022-02-11] MEDS: FLUTICASONE 44 MCG INHALATION SCH ×2 (09:05→21:00)
[2022-02-11] MEDS: polyethylene glycoL 3350 17 GM POWD.PACK PO SCH (09:06)
[2022-02-11] MEDS: LORATADINE 10 MG TAB PO SCH (09:06)
[2022-02-11] MEDS: FAMOTIDINE 20 MG TAB PO SCH ×2 (09:06→20:37)
[2022-02-11] MEDS: NICOTINE GUM (POLACRILEX) 2 MG GUM BUCCAL PRN ×3 (09:08→20:40)
[2022-02-11 10:04] VITALS: BMI 32.4
[2022-02-11] MEDS: metFORMIN 850 MG TAB PO SCH (15:56)
--- NOTE | 2022-02-11 20:02 | P.PN ---
Progress Note - Text Progress Note Date: 02/11/22 Interval History: Patient was seen in her room where she was found resting in bed. She is "pissed" because she was not able to go home. Per staff, [facility] came for discharge but refused to take patient since they believed she was not at baseline. On my assessment today, patient is grossly delusional, endorses homicidal ideations of "killing people that hurt me" and endorses auditory hallucinations of "friend Chau, kids, actors". She denies suicidal ideations, but endorses homicidal ideations of "want the mafia to kill my ex-huband". She states she does not want to take any medications. She did receive Invega Sustenna this week. She denies medication side effects. Mental Status Exam: General Appearance: Patient appears to be stated age is alert, hirsutirm, dressed in hospital gown, is laying in bed. Orientation: Alert, oriented to person, place, time. Behavior: Patient is laying in bed, good eye contact. Speech: Patient's speech is fluent and non-pressured. Mood/Affect: Mood is "pissed", affect is constricted. Suicidality/Homicidality: Patient denies any suicidal ideation, but does endorse homicidal ideations of "killing people that hurt me" and "want the mafia to kill my ex-huband". Perceptions: Patient continues to endorse auditory hallucinations but no visual hallucinations. Though content/process: Some persecutory delusional thought content. Memory and concentration: Grossly intact for the purposes of this session. Judgment and insight: Mildly improving. Assessment Schizoaffective disorder, bipolar type Posttraumatic stress disorder Cannabis use disorder Tobacco use disorder Plan: -Patient continues to meet criteria for inpatient psychiatric admission for symptom stabilization and safety. The patient is court ordered for medications and psychiatric treatment. -Medications: Patient received Invega sustenna 234 mg IM on 02/08/2022. Second loading dose of 156 mg IM is due on 02/15/2022. Increase Risperdal to 4 mg QHS for psychosis. -When necessary Ativan and Haldol for agitation/aggression. -NRT - nicotine patch - on board for discharge planning. Encouraged the patient to participate in milieu.
[2022-02-11] MEDS: traZODone HCL 100 MG TAB PO SCH (20:37)
[2022-02-11] MEDS: risperiDONE 2 MG TAB PO SCH (20:37)
[2022-02-11] MEDS: MONTELUKAST 10 MG TAB PO SCH (20:37)
[2022-02-11] MEDS: ATORVASTATIN 20 MG TAB PO SCH (20:37)
[2022-02-12] MEDS: LORATADINE 10 MG TAB PO SCH (09:05)
[2022-02-12] MEDS: FLUTICASONE 44 MCG INHALATION SCH ×2 (09:05→21:30)
[2022-02-12] MEDS: CHOLECALCIFEROL 125 MCG (5000 IU) TABLET PO SCH (09:05)
[2022-02-12] MEDS: FAMOTIDINE 20 MG TAB PO SCH ×2 (09:05→21:29)
[2022-02-12] MEDS: lisinopriL 10 MG TAB PO SCH (09:05)
[2022-02-12] MEDS: polyethylene glycoL 3350 17 GM POWD.PACK PO SCH (09:06)
[2022-02-12] MEDS: NICOTINE GUM (POLACRILEX) 2 MG GUM BUCCAL PRN ×3 (11:41→21:32)
[2022-02-12] MEDS: metFORMIN 850 MG TAB PO SCH (14:55)
--- NOTE | 2022-02-12 19:21 | P.PN ---
Progress Note - Text Progress Note Date: 02/12/22 Interval History: Patient was seen eating her dinner and she was agreeable to meet with this feature writer. Her mood is modestly improved today and she appears calmer on assessment. She continues to refuse groups and most of her medications. She denies active suicidal ideations or homicidal ideations, but continues to endorse paranoid delusions of staff bothering here. She endorses auditory hallucinations of "kids and the robots" and denies visual hallucinations. She denies medication side effects. Mental Status Exam: General Appearance: Patient appears to be stated age is alert, hirsutirm, dressed in hospital gown. Orientation: Alert, oriented to person, place, time. Behavior: Patient is cooperative, intense eye contact. Speech: Patient's speech is fluent and non-pressured. Mood/Affect: Mood is "more quiet", affect is constricted. Suicidality/Homicidality: Patient denies any suicidal ideation or homicidal ideations. Perceptions: Patient continues to endorse auditory hallucinations but no visual hallucinations. Though content/process: Some persecutory delusional thought content. Memory and concentration: Grossly intact for the purposes of this session. Judgment and insight: Mildly improving. Assessment Schizoaffective disorder, bipolar type Posttraumatic stress disorder Cannabis use disorder Tobacco use disorder Plan: -Patient continues to meet criteria for inpatient psychiatric admission for symptom stabilization and safety. The patient is court ordered for medications and psychiatric treatment. -Medications: Patient received Invega sustenna 234 mg IM on 02/08/2022. Second loading dose of 156 mg IM is due on 02/15/2022. Increase Risperdal to 1 mg QAM and 4 mg QHS for psychosis. -When necessary Ativan and Haldol for agitation/aggression. -NRT - nicotine patch -SW on board for discharge planning. Encouraged the patient to participate in milieu.
[2022-02-12] MEDS: ATORVASTATIN 20 MG TAB PO SCH (21:29)
[2022-02-12] MEDS: traZODone HCL 100 MG TAB PO SCH (21:30)
[2022-02-12] MEDS: MONTELUKAST 10 MG TAB PO SCH (21:30)
[2022-02-12] MEDS: risperiDONE 2 MG TAB PO SCH (21:30)
[2022-02-13] MEDS ORDERED: risperiDONE 1 MG TAB PO SCH (09:00)
[2022-02-13] MEDS: lisinopriL 10 MG TAB PO SCH (09:03)
[2022-02-13] MEDS: CHOLECALCIFEROL 125 MCG (5000 IU) TABLET PO SCH (09:04)
[2022-02-13] MEDS: FAMOTIDINE 20 MG TAB PO SCH ×2 (09:04→21:42)
[2022-02-13] MEDS: LORATADINE 10 MG TAB PO SCH (09:05)
[2022-02-13] MEDS: FLUTICASONE 44 MCG INHALATION SCH ×2 (09:05→23:53)
[2022-02-13] MEDS: polyethylene glycoL 3350 17 GM POWD.PACK PO SCH (09:05)
[2022-02-13 10:04] LABS: Glucose,Whole Blood 114 mg/dL (70-110)
[2022-02-13] MEDS: NICOTINE GUM (POLACRILEX) 2 MG GUM BUCCAL PRN ×2 (16:28→21:45)
--- NOTE | 2022-02-13 20:18 | P.PN ---
Progress Note - Text Progress Note Date: 02/13/22 Interval History: Patient was found in her room, sitting on her bed in the dark. She initially appears calm and pleasant, states her mood is "ok", states she continues to isolate to her room because of paranoid delusions of the other patients and staff are intentionally trying to get on her nerves on purpose. She continues to refuse groups and most of her medications. She denies active suicidal ideations or homicidal ideations. She endorses auditory hallucinations of her "kids" and denies visual hallucinations. She denies medication side effects. She becomes upset when I attempted to discuss her Invega Sustenna injection, became hostile and started yelling at me, claiming she only takes Risperdal. Mental Status Exam: General Appearance: Patient appears to be stated age is alert, hirsutirm, dressed in hospital gown. Orientation: Alert, oriented to person, place, time. Behavior: Patient is cooperative, intense eye contact. Speech: Patient's speech is fluent and non-pressured. Mood/Affect: Mood is "more quiet", affect is constricted. Suicidality/Homicidality: Patient denies any suicidal ideation or homicidal ideations. Perceptions: Patient continues to endorse auditory hallucinations but no visual hallucinations. Though content/process: Some persecutory delusional thought content. Memory and concentration: Grossly intact for the purposes of this session. Judgment and insight: Mildly improving. Assessment Schizoaffective disorder, bipolar type Posttraumatic stress disorder Cannabis use disorder Tobacco use disorder Plan: -Patient continues to meet criteria for inpatient psychiatric admission for symptom stabilization and safety. The patient is court ordered for medications and psychiatric treatment. -Medications: Patient received Invega sustenna 234 mg IM on 02/08/2022. Second loading dose of 156 mg IM is due on 02/15/2022. Increase Risperdal to 2 mg QAM and 4 mg QHS for psychosis. -When necessary Ativan and Haldol for agitation/aggression. -NRT - nicotine patch -SW on board for discharge planning. Encouraged the patient to participate in milieu.
[2022-02-13] MEDS: risperiDONE 2 MG TAB PO SCH (21:42)
[2022-02-13] MEDS: traZODone HCL 100 MG TAB PO SCH (23:53)
[2022-02-13] MEDS: MONTELUKAST 10 MG TAB PO SCH (23:53)
[2022-02-13] MEDS: metFORMIN 850 MG TAB PO SCH (23:53)
[2022-02-13] MEDS: ATORVASTATIN 20 MG TAB PO SCH (23:53)
[2022-02-14] MEDS: FLUTICASONE 44 MCG INHALATION SCH ×2 (09:09→20:32)
[2022-02-14] MEDS: FAMOTIDINE 20 MG TAB PO SCH ×2 (09:09→20:32)
[2022-02-14] MEDS: lisinopriL 10 MG TAB PO SCH (09:10)
[2022-02-14] MEDS: LORATADINE 10 MG TAB PO SCH (09:10)
[2022-02-14] MEDS: polyethylene glycoL 3350 17 GM POWD.PACK PO SCH (09:10)
[2022-02-14] MEDS: CHOLECALCIFEROL 125 MCG (5000 IU) TABLET PO SCH (09:11)
[2022-02-14] MEDS: risperiDONE 1 MG TAB PO SCH (09:11)
[2022-02-14] MEDS: NICOTINE GUM (POLACRILEX) 2 MG GUM BUCCAL PRN ×6 (09:13→23:51)
--- NOTE | 2022-02-14 16:03 | P.PN ---
Progress Note - Text Progress Note Date: 02/14/22 Interval History: Patient was found in her room, laying in her in the dark again today. She attempts to cooperate with assessment. She continues to display poor insight and judgment, states she does not need the Risperdal or the Invega, and does not need to take medications for mental illness. She denies active suicidal ideations or homicidal ideations. She endorses auditory hallucinations and denies visual hallucinations. She denies medication side effects. She is focused on discharge. Mental Status Exam: General Appearance: Patient appears to be stated age is alert, hirsutirm, dressed in hospital gown. Orientation: Alert, oriented to person, place, time. Behavior: Patient is cooperative, intense eye contact. Speech: Patient's speech is fluent and non-pressured. Mood/Affect: Mood is "ok", affect is constricted. Suicidality/Homicidality: Patient denies any suicidal ideation or homicidal ideations. Perceptions: Patient continues to endorse auditory hallucinations but no visual hallucinations. Though content/process: Some persecutory delusional thought content. Memory and concentration: Grossly intact for the purposes of this session. Judgment and insight: Chronically poor. Assessment Schizoaffective disorder, bipolar type Posttraumatic stress disorder Cannabis use disorder Tobacco use disorder Plan: -Patient continues to meet criteria for inpatient psychiatric admission for symptom stabilization and safety. The patient is court ordered for medications and psychiatric treatment. -Medications: Patient received Invega sustenna 234 mg IM on 02/08/2022. Second loading dose of 156 mg IM is due on 02/15/2022 - I have placed the order for 9am tomorrow. Continue Risperdal 2 mg QAM and 4 mg QHS for psychosis. -When necessary Ativan and Haldol for agitation/aggression. -NRT - nicotine patch -SW on board for discharge planning. Encouraged the patient to participate in milieu.
[2022-02-14] MEDS: metFORMIN 850 MG TAB PO SCH (17:11)
[2022-02-14] MEDS: MONTELUKAST 10 MG TAB PO SCH (20:32)
[2022-02-14] MEDS: ATORVASTATIN 20 MG TAB PO SCH (20:32)
[2022-02-14] MEDS: risperiDONE 2 MG TAB PO SCH (21:20)
[2022-02-14] MEDS: traZODone HCL 100 MG TAB PO SCH (21:25)
[2022-02-15] MEDS: NICOTINE GUM (POLACRILEX) 2 MG GUM BUCCAL PRN ×4 (06:13→21:17)
[2022-02-15] MEDS: lisinopriL 10 MG TAB PO SCH (08:01)
[2022-02-15] MEDS: risperiDONE 1 MG TAB PO SCH (08:02)
[2022-02-15] MEDS: LORATADINE 10 MG TAB PO SCH (08:06)
[2022-02-15] MEDS: FAMOTIDINE 20 MG TAB PO SCH ×2 (08:06→20:33)
[2022-02-15] MEDS: polyethylene glycoL 3350 17 GM POWD.PACK PO SCH (08:06)
[2022-02-15] MEDS: CHOLECALCIFEROL 125 MCG (5000 IU) TABLET PO SCH (08:06)
[2022-02-15] MEDS: FLUTICASONE 44 MCG INHALATION SCH ×2 (08:06→20:33)
[2022-02-15] MEDS: MAGNESIUM HYDROXIDE 2,400 MG/10 ML CUP PO PRN (08:27)
[2022-02-15] MEDS ORDERED: PALIPERIDONE IM 156 MG/ML SYG IM ONE (09:00)
--- NOTE | 2022-02-15 13:40 | P.PN ---
Progress Note - Text Progress Note Date: 02/15/22 Interval History: Patient was seen wandering the hallways and was directable and agreeable to speak with greeting card writer in the office. The patient expresses that she wants to "kill [facility]." She is denying any suicidal ideation however states that she wants to kill all [facility] workers because they are stopping her from living alone. She does not identify any individual or specific person. She continues to demand discharge. She expresses that she does not want to be locked up any longer. However, the patient continues to endorse significant visual hallucinations and auditory hallucinations. The patient reports that she has been seeing and speaking to her son and her "Jae." She also goes on a rant about speaking with Lorne Nazario and Oziel Porter. She expresses they have all told her she needs to be out of the hospital and living on her own. She then begin to speaks to herself stating that "It's ok mom, I will get you out of here. I know where you are." She was speaking as if it was her son speaking to her. She has been adherent with her medications and is not reporting any side effects. She received the second loading dose of invega sustenna today. Mental Status Exam: General Appearance: Patient appears to be stated age is alert, directable, and intermittently cooperative. Behavior: Patient is calmly seated without any agitated behavior. Speech: Patient's speech is fluent and nonpressured. Monotone. Bizarre at times. Mood/Affect: Mood is "angry." Affect is irritable. Suicidality/Homicidality: Patient denies any suicidal ideation however reports that she is homicidal toward [facility]. Perceptions: Patient endorses both auditory and visual hallucinations. Though content/process: Patient continues to be very delusional. Memory and concentration: AOX3, grossly intact for the purposes of this session Judgment and insight: Very poor Vital Signs Temp 97.7 F 02/15/22 06:16 Pulse 110 H 02/15/22 06:16 Resp 18 02/15/22 06:16 BP 121/65 02/15/22 06:16 Pulse Ox 97 02/15/22 06:16 FiO2 Assessment Schizoaffective disorder, bipolar type Posttraumatic stress disorder Cannabis use disorder Tobacco use disorder Plan: -Patient continues to meet criteria for inpatient psychiatric admission for symptom stabilization and safety. Patient is court ordered for medications and psychiatric treatment. -Medications: Invega Sustenna 234 mg IM was administered on 02/08/2022. 156 mg IM was a dministered on 02/15/2022. Discontinue Risperdal and start Haldol 3 mg by mouth twice a day for mood stabilization/psychosis Continue trazodone 200 mg by mouth at bedtime for insomnia -When necessary Ativan and Haldol for agitation/aggression. -NRT - nicotine patch -SW on board for discharge planning. Encouraged the patient to participate in milieu.
[2022-02-15] MEDS ORDERED: HALOPERIDOL LACTATE 5 MG/ML 1 ML VIAL IM PRN (20:22)
[2022-02-15] MEDS: metFORMIN 850 MG TAB PO SCH (20:33)
[2022-02-15] MEDS: ATORVASTATIN 20 MG TAB PO SCH (20:33)
[2022-02-15] MEDS: traZODone HCL 100 MG TAB PO SCH (20:34)
[2022-02-15] MEDS: MONTELUKAST 10 MG TAB PO SCH (20:34)
[2022-02-15] MEDS ORDERED: haloperidoL 1 MG TAB PO SCH (21:00)
[2022-02-15] MEDS: HALOPERIDOL ORAL SOLN 10 MG/5 ML CUP PO SCH (21:01)
[2022-02-16] MEDS: NICOTINE GUM (POLACRILEX) 2 MG GUM BUCCAL PRN ×4 (06:34→13:41)
[2022-02-16] MEDS: CHOLECALCIFEROL 125 MCG (5000 IU) TABLET PO SCH (07:56)
[2022-02-16] MEDS: FLUTICASONE 44 MCG INHALATION SCH ×2 (07:56→20:27)
[2022-02-16] MEDS: FAMOTIDINE 20 MG TAB PO SCH ×2 (07:56→20:27)
[2022-02-16] MEDS: LORATADINE 10 MG TAB PO SCH (07:57)
[2022-02-16] MEDS: polyethylene glycoL 3350 17 GM POWD.PACK PO SCH (08:22)
[2022-02-16] MEDS: HALOPERIDOL ORAL SOLN 10 MG/5 ML CUP PO SCH ×2 (08:22→20:29)
[2022-02-16] MEDS: lisinopriL 10 MG TAB PO SCH (08:23)
[2022-02-16] MEDS: MAGNESIUM HYDROXIDE 2,400 MG/10 ML CUP PO PRN (08:24)
--- NOTE | 2022-02-16 11:51 | P.PN ---
Progress Note - Text Progress Note Date: 02/16/22 Interval History: Patient was seen wandering the hallways and was directable and agreeable to speak with database report writer in the office. Currently, the patient is not reporting any suicidal or homicidal ideation, intention, and/or plan. She continues to report auditory hallucinations however states that she is able to ignore them and not listen to them. She states that she has been hearing voices aside from her family that are telling her to "touch myself." The patient is denying any delusional thought content today. She does express a desire to live with Jae and with her family. She was informed of the plan is to have her discharged back to her skilled nursing. Although she is against this idea, the patient states that she will cooperate at this time. She has been adherent with her medications and is not endorsing any significant side effects at this time. She reports no issues regarding her sleep or appetite. Mental Status Exam: General Appearance: Patient appears to be stated age is alert, directable, and cooperative today. Behavior: Patient is calmly seated without any agitated behavior. Speech: Patient's speech is fluent and nonpressured. Monotone. Mood/Affect: Mood is "I'm okay" Affect is blunted. Suicidality/Homicidality: Patient is denying any suicidal or homicidal ideation. Perceptions: Patient endorses auditory hallucinations however denies any visual hallucinations. Though content/process: Patient does not endorse any delusional thought content today. Memory and concentration: AOX3, grossly intact for the purposes of this session Judgment and insight: Mildly improving Vital Signs Temp 97 F L 02/16/22 06:36 Pulse 92 02/16/22 06:36 Resp 16 02/16/22 06:36 BP 125/55 02/16/22 06:36 Pulse Ox 97 02/15/22 06:16 FiO2 Assessment Schizoaffective disorder, bipolar type Posttraumatic stress disorder Cannabis use disorder Tobacco use disorder Plan: -Patient continues to meet criteria for inpatient psychiatric admission for symptom stabilization and safety. Patient is court ordered for medications and psychiatric treatment. -Medications: Invega Sustenna 234 mg IM was administered on 02/08/2022. 156 mg IM was administered on 02/15/2022. Increase Haldol to 4 mg by mouth twice a day for acute psychosis Continue trazodone 200 mg by mouth at bedtime for insomnia -When necessary Ativan and Haldol for agitation/aggression. -NRT - nicotine patch -SW on board for discharge planning. Encouraged the patient to participate in milieu.
[2022-02-16] MEDS: metFORMIN 850 MG TAB PO SCH (17:57)
[2022-02-16] MEDS: ATORVASTATIN 20 MG TAB PO SCH (20:27)
[2022-02-16] MEDS: traZODone HCL 100 MG TAB PO SCH (20:28)
[2022-02-16] MEDS: MONTELUKAST 10 MG TAB PO SCH (20:28)
[2022-02-17] MEDS: lisinopriL 10 MG TAB PO SCH (09:00)
[2022-02-17] MEDS: HALOPERIDOL ORAL SOLN 10 MG/5 ML CUP PO SCH ×2 (09:00→20:34)
[2022-02-17] MEDS: CHOLECALCIFEROL 125 MCG (5000 IU) TABLET PO SCH (09:02)
[2022-02-17] MEDS: NICOTINE GUM (POLACRILEX) 2 MG GUM BUCCAL PRN ×4 (09:02→20:36)
[2022-02-17] MEDS: FLUTICASONE 44 MCG INHALATION SCH ×2 (09:03→20:33)
[2022-02-17] MEDS: polyethylene glycoL 3350 17 GM POWD.PACK PO SCH (09:03)
[2022-02-17] MEDS: FAMOTIDINE 20 MG TAB PO SCH ×2 (09:03→20:32)
[2022-02-17] MEDS: LORATADINE 10 MG TAB PO SCH (09:03)
--- NOTE | 2022-02-17 14:17 | P.PN ---
Progress Note - Text Progress Note Date: 02/17/22 Interval History: Patient was seen wandering the hallways and was directable and agreeable to speak with telegraphic typewriter operator in the office. Yesterday afternoon, the patient became agitated when informed that she is not to be returning home with Jae in her family but would be sent to [facility] after discharge. The patient yelled and slapped the nursing station window however was directable to calm down with Nicorette gum. Today, the patient is not reporting any suicidal or homicidal ideation, intention, and/or plan. She is not reporting any auditory or visual hallucinations. She is denying any paranoia. The patient continues to believe that she will be discharged to her family and be with Jae and her children. She was again informed that she is to be going to [facility]. Patient was the escalated verbally and the psychiatric interview was terminated. Mental Status Exam: General Appearance: Patient appears to be stated age is alert, directable, and cooperative today. Behavior: Patient is calmly seated without any agitated behavior. Speech: Patient's speech is fluent and nonpressured. Monotone. Mood/Affect: Mood is "I'm fine." Affect is blunted. Suicidality/Homicidality: Patient is denying any suicidal or homicidal ideation. Perceptions: Patient is currently not reporting any auditory or visual hallucinations. Though content/process: Patient has a firm belief that she'll be returning home with her family. Memory and concentration: AOX3, grossly intact for the purposes of this session Judgment and insight: Mildly improving Vital Signs Temp 97 F L 02/16/22 06:36 Pulse 97 02/17/22 09:04 Resp 16 02/16/22 06:36 BP 135/60 02/17/22 09:04 Pulse Ox 97 02/15/22 06:16 FiO2 Assessment Schizoaffective disorder, bipolar type Posttraumatic stress disorder Cannabis use disorder Tobacco use disorder Plan: -Patient continues to meet criteria for inpatient psychiatric admission for symptom stabilization and safety. Patient is court ordered for medications and psychiatric treatment. -Medications: Invega Sustenna 234 mg IM was administered on 02/08/2022. 156 mg IM was administered on 02/15/2022. Increase Haldol to 5 mg by mouth twice a day for acute psychosis Continue trazodone 200 mg by mouth at bedtime for insomnia -When necessary Ativan and Haldol for agitation/aggression. -NRT - nicotine patch -SW on board for discharge planning. Encouraged the patient to participate in milieu.
[2022-02-17] MEDS: metFORMIN 850 MG TAB PO SCH (18:03)
[2022-02-17] MEDS: ATORVASTATIN 20 MG TAB PO SCH (20:32)
[2022-02-17] MEDS: traZODone HCL 100 MG TAB PO SCH (20:33)
[2022-02-17] MEDS: MONTELUKAST 10 MG TAB PO SCH (20:33)
[2022-02-18 06:10] VITALS: RESP 18
[2022-02-18] MEDS: HALOPERIDOL ORAL SOLN 10 MG/5 ML CUP PO SCH ×2 (08:24→20:30)
[2022-02-18] MEDS: LORATADINE 10 MG TAB PO SCH (08:26)
[2022-02-18] MEDS: FAMOTIDINE 20 MG TAB PO SCH ×2 (08:26→20:37)
[2022-02-18] MEDS: lisinopriL 10 MG TAB PO SCH (08:26)
[2022-02-18] MEDS: CHOLECALCIFEROL 125 MCG (5000 IU) TABLET PO SCH (08:26)
[2022-02-18] MEDS: polyethylene glycoL 3350 17 GM POWD.PACK PO SCH (08:28)
[2022-02-18] MEDS: NICOTINE GUM (POLACRILEX) 2 MG GUM BUCCAL PRN (09:40)
[2022-02-18] MEDS: FLUTICASONE 44 MCG INHALATION SCH ×2 (12:06→20:37)
--- NOTE | 2022-02-18 14:23 | P.PN ---
Progress Note - Text Progress Note Date: 02/18/22 Interval History: Patient was seen wandering the hallways and was directable and agreeable to speak with insurance underwriter in the office. Currently, the patient is calm and cooperative. She is currently not reporting any suicidal or homicidal ideation, intention, and/or plan. She continues to endorse auditory hallucinations of her family however is denying any visual hallucinations. She occasionally speaks as if she is her son and repeats to herself, "Don't worry mom, you will get out of there. I will get you out of there." She reports no paranoia but continues to have a delusional belief that Jae exists and that she will be living with him despite numerous attempts by this provider to inform her that she is not going to be living with them. The patient expresses understanding though that she will be going to [facility] upon discharge. Mental Status Exam: General Appearance: Patient appears to be stated age is alert, directable, and cooperative today. Behavior: Patient is calmly seated without any agitated behavior. Speech: Patient's speech is fluent and nonpressured. Monotone. Mood/Affect: Mood is "I'm okay. I want a cigarette" Affect is blunted. Suicidality/Homicidality: Patient is denying any suicidal or homicidal ideation. Perceptions: Patient is currently not reporting any auditory or visual hallucinations. Though content/process: Patient has a firm belief that she'll be returning home with her family. Memory and concentration: AOX3, grossly intact for the purposes of this session Judgment and insight: Mildly improving Vital Signs Temp 97.7 F 02/18/22 06:09 Pulse 76 02/18/22 06:09 Resp 18 02/18/22 06:09 BP 128/74 02/18/22 06:09 Pulse Ox 98 02/18/22 06:09 FiO2 Assessment Schizoaffective disorder, bipolar type Posttraumatic stress disorder Cannabis use disorder Tobacco use disorder Plan: -Patient continues to meet criteria for inpatient psychiatric admission for symptom stabilization and safety. Patient is court ordered for medications and psychiatric treatment. -Medications: Invega Sustenna 234 mg IM was administered on 02/08/2022. 156 mg IM was administered on 02/15/2022. Continue Haldol 5 mg by mouth twice a day for acute psychosis Continue trazodone 200 mg by mouth at bedtime for insomnia -When necessary Ativan and Haldol for agitation/aggression. -NRT - nicotine patch -SW on board for discharge planning. Encouraged the patient to participate in milieu.
[2022-02-18] MEDS: metFORMIN 850 MG TAB PO SCH (15:38)
[2022-02-18] MEDS: ATORVASTATIN 20 MG TAB PO SCH (20:37)
[2022-02-18] MEDS: traZODone HCL 100 MG TAB PO SCH (20:38)
[2022-02-18] MEDS: MONTELUKAST 10 MG TAB PO SCH (20:38)
[2022-02-19] MEDS: HALOPERIDOL ORAL SOLN 10 MG/5 ML CUP PO SCH ×2 (08:41→21:13)
[2022-02-19] MEDS: lisinopriL 10 MG TAB PO SCH (08:41)
[2022-02-19] MEDS: NICOTINE GUM (POLACRILEX) 2 MG GUM BUCCAL PRN ×4 (08:45→21:15)
[2022-02-19] MEDS: CHOLECALCIFEROL 125 MCG (5000 IU) TABLET PO SCH (09:39)
[2022-02-19] MEDS: FAMOTIDINE 20 MG TAB PO SCH ×2 (09:39→21:24)
[2022-02-19] MEDS: FLUTICASONE 44 MCG INHALATION SCH ×2 (09:39→21:24)
[2022-02-19] MEDS: LORATADINE 10 MG TAB PO SCH (09:40)
[2022-02-19] MEDS: polyethylene glycoL 3350 17 GM POWD.PACK PO SCH (09:40)
[2022-02-19 12:24] VITALS: BP 124/96; PULSE 115; TEMP 97.1
[2022-02-19] MEDS: MAGNESIUM HYDROXIDE 2,400 MG/10 ML CUP PO PRN (14:32)
--- NOTE | 2022-02-19 14:47 | P.PN ---
Progress Note - Text Progress Note Date: 02/19/22 Clinical Problems: Schizoaffective disorder bipolar type, posttraumatic stress disorder, cannabis use, tobacco use Interim history: I reviewed the medical record and interviewed the patient. The patient was markedly guarded and suspicious. She refused to leave her room for the interview and stood in the doorway preventing me from entering her room. She complained about "people" entering her room. She requested milk of magnesia for constipation instead of MiraLAX. She denied that she is experiencing auditory or visual hallucinations. She attends most therapeutic groups and activities. She slept 7 hours last night. She is noncompliant with most medications with the exception of Haldol. Mental status exam: She presented as a stocky casually groomed 51-year-old female who was guarded and suspicious. She made eye contact and appeared to attend to the interview. She had no distinguishing features or prominent physical abnormalities. She had a blunted facial expression. She was alert and oriented to person, place and time. She showed slight psychomotor retardation but no abnormal involuntary movements. Her gait was slow but steady. Her speech was spontaneous with normal rate and rhythm. Her affect was suspicious and paranoid. She did not express suicidal ideation, wishes homicidal ideation. She did not express feelings of hopelessness, helplessness or worthlessness. She did not express clear ideas reference or delusional beliefs. I was uncertain whether her concern about people entering her room was positive for paranoid delusion or overvalued ideation. Her thinking was concrete but her associations appeared goal directed. She denies hallucinations and did not appear to be responding to internal stimuli. Assessment: She was severely and chronically mentally ill remarkably improve from admission. Plan: Continue inpatient treatment. Safety precautions. Continue Invega Sustenna 234 mg IM monthly and Haldol 5 mg twice a day. Continue trazodone 200 mg at bedtime for insomnia. Discontinue MiraLAX; to that she has a current or marge for milk of magnesia. Encourage compliant with medications include Ventolin, Lipitor, Flovent, Claritin, Glucophage, Singulair and lisinopril. Encourage participation in therapeutic groups and activities. Evaluate clinical status response to treatment daily basis.
[2022-02-19] MEDS: metFORMIN 850 MG TAB PO SCH (17:29)
[2022-02-19] MEDS: ATORVASTATIN 20 MG TAB PO SCH (21:24)
[2022-02-19] MEDS: MONTELUKAST 10 MG TAB PO SCH (21:24)
[2022-02-19] MEDS: traZODone HCL 100 MG TAB PO SCH (22:01)
[2022-02-20] MEDS: HALOPERIDOL ORAL SOLN 10 MG/5 ML CUP PO SCH ×2 (08:57→20:20)
[2022-02-20] MEDS: lisinopriL 10 MG TAB PO SCH (08:58)
[2022-02-20] MEDS: FLUTICASONE 44 MCG INHALATION SCH ×2 (08:59→21:38)
[2022-02-20] MEDS: CHOLECALCIFEROL 125 MCG (5000 IU) TABLET PO SCH (08:59)
[2022-02-20] MEDS: FAMOTIDINE 20 MG TAB PO SCH ×2 (08:59→21:38)
[2022-02-20] MEDS: LORATADINE 10 MG TAB PO SCH (08:59)
--- NOTE | 2022-02-20 12:59 | P.PN ---
Progress Note - Text Progress Note Date: 02/20/22 Clinical Problems: Schizoaffective disorder bipolar type, posttraumatic stress disorder, cannabis use, tobacco use Interim history: I reviewed the medical record and interviewed the patient. Rylie remains guarded and suspicious. She would not allow me to enter her room and would not come to my office for the interview. She complained of continued constipation relieved by milk of magnesia. She also complained that Dulcolax, Colace, MiraLAX and senna are all ineffective. Nursing felt me that she complains of chronic constipation and has been offered multiple options. They suspect her constipation is related to her poor fluid intake and her lack of activity. She spends her day in bed and does not interact with staff or peers. She only comes out for medications; although she is only compliant with the oral Haldol elixir. She is posed no management problem and has no episodes of behavioral dyscontrol. She does not attend therapeutic groups and activities. Mental status exam: She presented as a moderately obese 51-year-old woman with hirsutism. She made eye contact and appeared to attend to the interview. She had a flat facial expression. She has psychomotor retardation but no abnormal movements. Her speech was spontaneous with decreased rate and rhythm. Affect was flat. She denied suicidal ideation, wishes or homicidal ideation. She is guarded, suspicious but did not express clear paranoid ideation or delusions. Her her thinking was concrete and she demonstrated poverty of thought and poverty of content. She did not appear to be responding to internal stimuli Assessment: She is seriously and persistently mentally ill and moderately improved from admission. Plan: Continue inpatient. Safety precautions. Continue Haldol solution 5 mg twice a day and titrated according to clinical response and tolerance. Continue 200 mg at bedtime and Invega Sustenna 234 mg IM monthly. Encourage compliant with prescribed medications including Ventolin, Lipitor, Flovent, Claritin, Glucophage, Singulair and lisinopril. Encourage participation in therapeutic groups and activities. Evaluate clinical status response to treatment daily basis.
[2022-02-20] MEDS: MAGNESIUM HYDROXIDE 2,400 MG/10 ML CUP PO PRN (15:24)
[2022-02-20] MEDS: NICOTINE GUM (POLACRILEX) 2 MG GUM BUCCAL PRN (15:25)
[2022-02-20] MEDS: metFORMIN 850 MG TAB PO SCH (17:34)
[2022-02-20] MEDS: MONTELUKAST 10 MG TAB PO SCH (21:38)
[2022-02-20] MEDS: ATORVASTATIN 20 MG TAB PO SCH (21:38)
[2022-02-20] MEDS: traZODone HCL 100 MG TAB PO SCH (21:38)
[2022-02-21] MEDS: CHOLECALCIFEROL 125 MCG (5000 IU) TABLET PO SCH (08:25)
[2022-02-21] MEDS: FAMOTIDINE 20 MG TAB PO SCH (08:25)
[2022-02-21] MEDS: lisinopriL 10 MG TAB PO SCH (08:26)
[2022-02-21] MEDS: HALOPERIDOL ORAL SOLN 10 MG/5 ML CUP PO SCH (08:26)
[2022-02-21] MEDS: FLUTICASONE 44 MCG INHALATION SCH (08:26)
[2022-02-21] MEDS: LORATADINE 10 MG TAB PO SCH (08:26)
[2022-02-21] MEDS: NICOTINE GUM (POLACRILEX) 2 MG GUM BUCCAL PRN (13:46)
--- NOTE | 2022-02-21 14:35 | P.DS ---
Providers Date of admission: 01/17/22 19:59 Expected date of discharge: 02/21/22 Attending physician: Demond Knight MD Consults: 01/17/22 20:12 Consult Physician Routine Consulting Provider: Ania Physician Consult Reason/Comments: H&P and medical Do you want consulting provider notified?: Yes Primary care physician: [facility] - Discharge Diagnosis(es) (1) Schizoaffective disorder, bipolar type Current Visit: Yes Status: Acute Priority: High (2) PTSD (post-traumatic stress disorder) Current Visit: Yes Status: Chronic Priority: Medium (3) Tobacco use disorder Current Visit: Yes Status: Chronic Priority: Medium (4) Cannabis use disorder Current Visit: Yes Status: Chronic Priority: Medium Hospital Course: Admission HPI: Patient is a 51-year-old female with significant history of schizophrenia presented to the hospital for acute psychosis. Patient presented to the hospital on 01/17/2022, brought into the hospital by police after eloping from her [facility] long-term. Reportedly, the patient has been nonadherent with her medications including her regularly scheduled dose of Invega Sustenna. The patient last received the injectable Invega Sustenna on 12/13/2021 and was scheduled for her next injection of 234 mg IM on 01/10/2022. The patient has been petitioned and certified and subsequently admitted to the psychiatric unit. The patient was last seen for a medication review on 12/16/2021. Upon evaluation on the psychiatric unit, the patient is grossly delusional, disorganized, and responding to internal stimuli. She endorses auditory and visual hallucinations. She expresses bizarre delusions of surveillance and paranoia. She reports that "they are after me and my baby." She also reports concern that some government entity is trying to put thoughts into her head. She is unable to provide any clear psychiatric history otherwise at this time. She is unable to recall what medication she has been taking and when she left medications. The patient is currently denying any active suicidal ideation however does have significant decided attempts by cutting. She is currently denying any homicidal ideation, intention, and/or plan. The patient firmly believes that she does not have schizophrenia. She reports that she does not want to take any medications. Patient has previous diagnoses of schizophrenia. The patient's home medication regimen includes Invega Sustenna 234 mg IM, risperidone 1 mg twice a day, trazodone 200 mg at bedtime, Effexor. Patient has had numerous psychiatric hospitalizations. The patient is currently open with [facility]. The patient has had a prior attempt at suicide by cutting. Hospital course: Upon admission to the unit patient was initially uncooperative, endorsing significant psychotic symptoms, and nonadherent with any medications. The patient was subsequently certified. She was uncooperative with any medications or treatment during the initial portion of her hospital stay. The patient was eventually court ordered for mental health treatment on 02/02/2022. Afterwards, the patient was placed on Invega for psychosis with plans to return transition h er back on to Invega Sustenna. The patient's oral Invega was gradually titrated and the patient was adherent with intermittent episodes of irritability and agitation. She became more cooperative with this provider and staff. She was re-transition back on to Invega Sustenna 234 mg on 02/09/2022. Her second loading dose of 156 mg was administered on 02/16/2022. The patient was also augmented with Risperdal as the patient continued to endorse her delusional beliefs, auditory hallucinations, and intermittent episodes of agitation. The patient primarily expressed a strong desire to be reunited with her family despite numerous attempts to educate the patient that she would be going to [facility] upon discharge. It was determined that Risperdal was not effective enough and the patient was transitioned to oral Haldol. The Haldol was made liquid in order to ensure compliance with medication. Her Haldol was gradually titrated to 5 mg twice a day. On this regimen of Haldol and Invega Sustenna, the patient displayed gradual but significant improvement in regards to her target symptoms of agitation, visual hallucinations, auditory hallucinations, and delusional beliefs. She became more amenable to the idea of going to [facility] and was much more calm and cooperative with staff and peers. She also increased her participation in groups. On the day of discharge, the patient is not reporting any suicidal or homicidal ideation, intention, and/or plan. She continues to report auditory hallucinations of her family however denies any visual hallucinations. She is not reporting any other delusions aside from a strong desire to be very united with her family and with her nonexistent Jae. She is otherwise not reporting any side effects of medications and has been adherent. The patient will be going to [facility] upon discharge on her current regimen. Mental status exam: General Appearance: Patient appears to be stated age is alert, pleasant, and cooperative. Patient is in no acute distress and has fair hygiene and grooming. The patient shaved. Behavior: Patient is calmly seated without any agitated behavior. Speech: Patient's speech is fluent and nonpressured. Mood/Affect: Patient reports their mood is "feeling ready to go", affect is congruent and blunted at baseline. Suicidality/Homicidality: Patient denies having any suicidal or homicidal ideation intent or plan. Perceptions: Patient does endorse auditory hallucinations at baseline. No visual hallucinations. Though content/process: Patient continues to have a delusional belief that she is to a Jae. However this appears to be fixed and baseline for her. Memory and concentration: AOX3, grossly intact for the purposes of this session. Can spell "WORLD" backwards correctly. Judgment and insight: Improved with guarded prognosis Impression: Schizoaffective disorder, bipolar type Posttraumatic stress disorder Cannabis use disorder Tobacco use disorder Plan: -Continue with discharge today as patient has improved and stabilized psychiatrically and is not currently an imminent threat to herself and/or others. Patient will remain at chronically elevated risk for harm to self and/or others due to the severity of her mental illness and her nonadherence with treatment.. -Continue medications: Trazodone 200 mg by mouth at bedtime for insomnia Haldol oral solution 5 mg by mouth twice a day for psychosis Invega Sustenna 156 mg IM - last dose administered on 02/16/2022. Next dose due on 03/16/1022. -Patient was counseled on the need for medication compliance and appropriate follow-up at mental health and also primary care for medical issues. Patient verbalized understanding and agreed. -Social work to arrange for and conduct family meeting to ensure safety upon discharge and answer any questions/concerns. Social work also to arrange for patients follow up appointments with [facility] for psychiatric care along with follow up with primary care provider. -Patient counseled on abstaining from recreational drugs and marijuana and alcohol. Was informed/educated on the adverse effects on their physical and mental health. Patient verbally agreed and understood. -Patient was instructed to return to the hospital or seek immediate medical care if their psychiatric or medical symptoms do worsen or reoccur. -Psychoeducation and supportive therapy provided to patient. Risks and benefits of pharmacological treatment versus the risks and benefits of nontreatment weight and discussed. Informed consent discussion held. Common side effects of psychotropics discussed such as, but not limited to headache, GI disturbance, sexual dysfunction, movement disorders, sedation, and orthostatic hypotension. Life threatening and blackbox warnings of prescribed medications also discussed. Potential risks of operating a vehicle or heavy machinery discussed with patient at length. Advised on importance of compliance and a reliable and responsible manner. Patient advised to review FDA consumer labeling of all medications prior to taking. Patient verbalized understanding of potential risks, and agrees with current treatment plan. Patient advised to medically con tact physician/emergency personnel if any acute changes in condition occur. Laboratory Results WBC 8.3 k/uL (3.8-10.6) 01/18/22 06:51 RBC 5.23 m/uL (3.80-5.40) 01/18/22 06:51 Hgb 14.7 gm/dL (11.4-16.0) 01/18/22 06:51 Hct 44.2 % (34.0-46.0) 01/18/22 06:51 MCV 84.6 fL (80.0-100.0) 01/18/22 06:51 MCH 28.1 pg (25.0-35.0) 01/18/22 06:51 MCHC 33.2 g/dL (31.0-37.0) 01/18/22 06:51 RDW 14.2 % (11.5-15.5) 01/18/22 06:51 Plt Count 207 k/uL (150-450) 01/18/22 06:51 MPV 8.9 01/18/22 06:51 Neutrophils % 58 % 01/18/22 06:51 Lymphocytes % 31 % 01/18/22 06:51 Monocytes % 6 % 01/18/22 06:51 Eosinophils % 2 % 01/18/22 06:51 Basophils % 1 % 01/18/22 06:51 Neutrophils # 4.9 k/uL (1.3-7.7) 01/18/22 06:51 Lymphocytes # 2.6 k/uL (1.0-4.8) 01/18/22 06:51 Monocytes # 0.5 k/uL (0-1.0) 01/18/22 06:51 Eosinophils # 0.1 k/uL (0-0.7) 01/18/22 06:51 Basophils # 0.1 k/uL (0-0.2) 01/18/22 06:51 Sodium 138 mmol/L (137-145) 01/18/22 06:51 Potassium 4.0 mmol/L (3.5-5.1) 01/18/22 06:51 Chloride 104 mmol/L (98-107) 01/18/22 06:51 Carbon Dioxide 29 mmol/L (22-30) 01/18/22 06:51 Anion Gap 5 mmol/L 01/18/22 06:51 BUN 7 mg/dL (7-17) 01/18/22 06:51 Creatinine 0.63 mg/dL (0.52-1.04) 01/18/22 06:51 Est GFR (CKD-EPI)AfAm >90 (>60 ml/min/1.73 sqM) 01/18/22 06:51 Est GFR (CKD-EPI)NonAf >90 (>60 ml/min/1.73 sqM) 01/18/22 06:51 Glucose 98 mg/dL (74-99) 01/18/22 06:51 POC Glucose (mg/dL) 114 mg/dL (70-110) H 02/13/22 10:01 POC Glu Milieu Counselor Cristian Perez 02/13/22 10:[address] Glu mg/dL 123 01/18/22 06:51 Hemoglobin A1c 5.9 % (0.0-6.0) 01/18/22 06:51 Calcium 9.4 mg/dL (8.4-10.2) 01/18/22 06:51 Total Bilirubin 0.6 mg/dL (0.2-1.3) 01/18/22 06:51 AST 44 U/L (14-36) H 01/18/22 06:51 ALT 42 U/L (4-34) H 01/18/22 06:51 Alkaline Phosphatase 72 U/L (38-126) 01/18/22 06:51 Total Protein 6.7 g/dL (6.3-8.2) 01/18/22 06:51 Albumin 4.3 g/dL (3.5-5.0) 01/18/22 06:51 Triglycerides 162.00 mg/dL (0.00-149.00) H 01/18/22 06:51 Cholesterol 121.00 mg/dL (0.00-200.00) 01/18/22 06:51 LDL Cholesterol, Calc 50.0 mg/dL (0.0-131.0) 01/18/22 06:51 VLDL Cholesterol, Calc 32.40 mg/dL (5.00-40.00) 01/18/22 06:51 HDL Cholesterol 38.60 mg/dL (40.00-60.00) L 01/18/22 06:51 Cholesterol/HDL Ratio 3.13 Ratio 01/18/22 06:51 TSH 1.820 mIU/L (0.465-4.680) 01/18/22 06:51 Urine Color Yellow 01/20/22 08:00 Urine Appearance Cloudy (Clear) H 01/20/22 08:00 Urine pH 5.5 (5.0-8.0) 01/20/22 08:00 Ur Specific [place] 1.025 (1.001-1.035) 01/20/22 08:00 Urine Protein 1+ (Negative) H 01/20/22 08:00 Urine Glucose (UA) Trace (Negative) H 01/20/22 08:00 Urine Ketones Negative (Negative) 01/20/22 08:00 Urine Blood Moderate (Negative) H 01/20/22 08:00 Urine Nitrite Negative (Negative) 01/20/22 08:00 Urine Bilirubin 1+ (Negative) H 01/20/22 08:00 Urine Urobilinogen 3.0 mg/dL (<2.0) 01/20/22 08:00 Ur Leukocyte Esterase Large (Negative) H 01/20/22 08:00 Urine RBC 16 /hpf (0-5) H 01/20/22 08:00 Urine WBC 15 /hpf (0-5) H 01/20/22 08:00 Ur Squamous Epith Cells 32 /hpf (0-4) H 01/20/22 08:00 Amorphous Sediment Rare /hpf (None) H 01/20/22 08:00 Urine Bacteria Moderate /hpf (None) H 01/20/22 08:00 Urine Mucus Many /hpf (None) H 01/20/22 08:00 Urine Opiates Screen Not Detected (NotDetected) 01/17/22 15:22 Ur Oxycodone Screen Not Detected (NotDetected) 01/17/22 15:22 Urine Methadone Screen Not Detected (NotDetected) 01/17/22 15:22 Ur Propoxyphene Screen Not Detected (NotDetected) 01/17/22 15:22 Ur Barbiturates Screen Not Detected (NotDetected) 01/17/22 15:22 U Tricyclic Antidepress Not Detected (NotDetected) 01/17/22 15:22 Ur Phencyclidine Scrn Not Detected (NotDetected) 01/17/22 15:22 Ur Amphetamines Screen Not Detected (NotDetected) 01/17/22 15:22 U Methamphetamines Scrn Not Detected (NotDetected) 01/17/22 15:22 U Benzodiazepines Scrn Not Detected (NotDetected) 01/17/22 15:22 Urine Cocaine Screen Not Detected (NotDetected) 01/17/22 15:22 U Marijuana (THC) Screen Not Detected (NotDetected) 01/17/22 15:22 Coronavirus (PCR) Not Detected (Not Detectd) 01/17/22 17:07 Vital Signs Temp 97.1 F L 02/19/22 12:23 Pulse 115 H 02/19/22 12:23 Resp 18 02/19/22 12:23 BP 124/96 02/19/22 12:23 Pulse Ox 98 02/18/22 06:09 FiO2 Intake & Output 02/20/22 02/21/22 02/21/22 18:59 06:59 18:59 Weight 89.5 kg Allergies Allergy/AdvReac Type Severity Reaction Status Date / Time codeine Allergy Unknown Verified 01/17/22 21:43 Patient Condition at Discharge: Stable Plan - Discharge Summary Discharge Rx Participant: No New Discharge Prescriptions: New traZODone HCL [Desyrel] 200 mg PO HS@2100 30 Days tab Nicotine Gum (Polacrilex) [Nicorette] 2 mg BUCCAL Q2HR PRN 30 Days pieceofgum PRN Reason: Nicotine Cravings Famotidine [Pepcid] 20 mg PO BID@0800,2100 30 Days tab Haloperidol Oral Soln [Haldol Oral Soln] 5 mg PO BID 30 Days ml Paliperidone IM [Invega Sustenna] 156 mg IM QMONTHLY #1 each Continue Loratadine 10 mg PO DAILY@0800 Lactulose 10 gm PO DAILY PRN PRN Reason: Constipation metFORMIN HCL [Glucophage] 850 mg PO W/SUPPER@1700 lisinopriL [Zestril] 20 mg PO DAILY@0800 Glucerna Shake 1 can PO DAILY@0800 Fluticasone Propionate 44 Mcg [Flovent 44 Mcg Inhaler] 1 puff INHALATION RT- BID@0800,2100 Ammonium Lactate Cream [Lac-Hydrin 12% Cream] 1 applic TOPICAL DAILY@0800 PRN PRN Reason: BOTH FEET Albuterol Inhaler [Ventolin Hfa Inhaler] 2 puff INHALATION RT-Q6H PRN PRN Reason: Shortness Of Breath Robafen Syp 100/5ml 1 dose PO DIRECTED PRN PRN Reason: COUGH/COLD SYMPTOMS Metamucil [place] 1 dose PO DIRECTED PRN PRN Reason: Constipation Aristeo-Tin Liq 1 dose PO DIRECTED PRN PRN Reason: Diarrhea Cholecalciferol [Vitamin D3 (125 Mcg = 5000 Iu)] 125 mcg PO DAILY@0800 Olopatadine HCl [Pataday] 1 drop BOTH EYES DAILY@0800 Montelukast Sodium [Singulair] 10 mg PO HS@2100 Famotidine 20 mg PO BID@0800,2100 Atorvastatin [Lipitor] 20 mg PO HS@2100 Discontinued Pseudoephedrine [Sudafed] 30 mg PO DIRECTED Magnesium Hydroxide [Milk of Magnesia] 1,200 mg PO DIRECTED PRN PRN Reason: Constipation Loperamide HCl [Imodium A-D] 2 mg PO DIRECTED PRN PRN Reason: Diarrhea Ibuprofen [Motrin Ib] 200 mg PO DIRECTED Docusate [Colace] 100 mg PO DIRECTED PRN PRN Reason: Constipation Aspirin EC [Ecotrin] 325 mg PO DIRECTED traZODone HCL 200 mg PO HS@2100 risperiDONE [RisperDAL] 1 mg PO BID@0800,2100 Venlafaxine HCl [Effexor XR] 150 mg PO DAILY@0800 Lgnqsgce-Rwhyuizqle-Knlj Oint [Triple Antibiotic Ointment] 1 applic TOPICAL DIRECTED PRN PRN Reason: MINOR ABRASIONS, CUTS, TIDWELL Acetaminophen [Tylenol] 325 mg PO DIRECTED PRN PRN Reason: Fever And/ Or Pain Paliperidone IM [Invega Sustenna] 234 mg IM QMONTHLY Discharge Medication List Albuterol Inhaler [Ventolin Hfa Inhaler] 2 puff INHALATION RT-Q6H PRN 01/17/22 [History] Ammonium Lactate Cream [Lac-Hydrin 12% Cream] 1 applic TOPICAL DAILY@0800 PRN 01/17/22 [History] Atorvastatin [Lipitor] 20 mg PO HS@209901/17/22 [History] Cholecalciferol [Vitamin D3 (125 Mcg = 5000 Iu)] 125 mcg PO DAILY@0801/17/22 [History] Famotidine 20 mg PO BID@799,209901/17/22 [History] Fluticasone Propionate 44 Mcg [Flovent 44 Mcg Inhaler] 1 puff INHALATION RT- BID@799,209901/17/22 [History] Glucerna Shake 1 can PO DAILY@0801/17/22 [History] Aristeo-Tin Liq 1 dose PO DIRECTED PRN 01/17/22 [History] Lactulose 10 gm PO DAILY PRN 01/17/22 [History] Loratadine 10 mg PO DAILY@79901/17/22 [History] Metamucil [place] 1 dose PO DIRECTED PRN 01/17/22 [History] Montelukast Sodium [Singulair] 10 mg PO HS@209901/17/22 [History] Olopatadine HCl [Pataday] 1 drop BOTH EYES DAILY@79901/17/22 [History] Robafen Syp 100/5ml 1 dose PO DIRECTED PRN 01/17/22 [History] lisinopriL [Zestril] 20 mg PO DAILY@79901/17/22 [History] metFORMIN HCL [Glucophage] 850 mg PO W/SUPPER@169901/17/22 [History] Famotidine [Pepcid] 20 mg PO BID@0800,2099 30 Days tab 02/10/22 [Rx] Nicotine Gum (Polacrilex) [Nicorette] 2 mg BUCCAL Q2HR PRN 30 Days pieceofgum 02/10/22 [Rx] traZODone HCL [Desyrel] 200 mg PO HS@2099 30 Days tab 02/10/22 [Rx] Haloperidol Oral Soln [Haldol Oral Soln] 5 mg PO BID 30 Days ml 02/21/22 [Rx] Paliperidone IM [Invega Sustenna] 156 mg IM QMONTHLY #1 each 02/21/22 [Rx] Follow up Appointment(s)/Referral(s): [facility] [Outside] - 02/10/22 3:30 pm (02-22-22 at 10:[address] Gonzalez) None,Stated [REFERRING] - 1-2 days [facility] [Primary Care Provider] - 1 Week Patient Instructions/Handouts: How to Stop Smoking (DC), Schizoaffective Disorder (DC), Psychotic Disorder (DC) Activity/Diet/Wound Care/Special Instructions: Avoid the use of street drugs and alcohol. Take all prescriptions as prescribed. When you are in need of refills on your medications, please contact your medical provider and/or outpatient psychiatrist to have this done. Please go to scheduled outpatient appointment for aftercare treatment. If symptoms return or become worse, call the crisis line at and/or go to the nearest emergency room for evaluation. Discharge Disposition: HOME SELF-CARE
== END 2022-02-21 14:25 | disposition home or self-care (01) | DRG 885 ==
LOC: EC 13:31 → 3MHU 19:59
PROVIDERS: ADMIT Psychiatry & Neurology Psychiatry; ATTEND Psychiatry & Neurology Psychiatry
DX: F25.0 Schizoaffective disorder, bipolar type (principal); R45.851 Suicidal ideations; F43.10 Post-traumatic stress disorder, unspecified; G47.00 Insomnia, unspecified; I10 Essential (primary) hypertension; J44.9 Chronic obstructive pulmonary disease, unspecified; K21.9 Gastro-esophageal reflux disease without esophagitis; K59.09 Other constipation; R45.850 Homicidal ideations; F17.210 Nicotine dependence, cigarettes, uncomplicated; Z71.6 Tobacco abuse counseling; Z71.51 Drug abuse counseling and surveillance of drug abuser; E11.9 Type 2 diabetes mellitus without complications; E78.5 Hyperlipidemia, unspecified; R45.1 Restlessness and agitation; F12.10 Cannabis abuse, uncomplicated; Z79.84 Long term (current) use of oral hypoglycemic drugs; Z79.899 Other long term (current) drug therapy; Z85.41 Personal history of malignant neoplasm of cervix uteri; Z91.14 Patient's other noncompliance with medication regimen; Z28.21 Immunization not carried out because of patient refusal; Z20.822 Contact with and (suspected) exposure to COVID-19; Z88.5 Allergy status to narcotic agent; Z91.51 Personal history of suicidal behavior
CPT/HCPCS: 80053; 80061; 80306; 81001; 82075; 83036; 84443; 85025; 87635; 96372; 99285